=== PATIENT | female | born 1940 | race Caucasian/White ===

== ENCOUNTER 2018-06-14 13:25 | Inpatient (IN) ==
--- NOTE | 2018-06-14 13:36 | Emergency Department Note ---
Disposition Clinical Impression: Displaced fracture of right femoral neck Pelvic fracture Qualifiers: Encounter type: initial encounter Pelvic bone location: pubis Sublocation of pubis: unspecified portion of pubis Fracture type: closed Laterality: right Qualified Code(s): S32.501A - Unspecified fracture of right pubis, initial encounter for closed fracture Disposition: Admitted As Inpatient Condition: Good Time of Disposition: 16:07 General Adult HPI - General Stated complaint: fall Time Seen by Provider: 06/14/18 13:32 Source: patient, EMS Mode of arrival: EMS Limitations: no limitations - History of Present Illness HPI Narrative: This is a 77-year-old female who had a fall from standing, one of numerous falls recently, with persistent right hip pain. She was unable to get up afterwards because of the fall. - Related Data Home Medications Medication Instructions Recorded Confirmed Aspirin [Lo-Dose Aspirin EC] 07/31/16 Calcium + Vitamin D3 Gummies 07/31/16 Elavil 07/31/16 Fish Oil 07/31/16 Ibuprofen 07/31/16 Multivitamins 07/31/16 Neurontin 07/31/16 Propanolol 07/31/16 Synthroid 07/31/16 Tylenol 07/31/16 Previous Rx's Medication Instructions Recorded Azithromycin [Zithromax] 250 mg PO DAILY #6 tablet 07/31/16 Lidocaine Viscous Oral Soln 15 ml MM TID PRN #180 solution 07/31/16 Loratadine [Claritin] 10 mg PO DAILY #30 tablet 07/31/16 Cephalexin [Keflex] 500 mg PO QID 7 Days capsule 06/21/17 Mupirocin [Bactroban Oint] 1 appl TP BID 7 Days tube 01/14/18 cephALEXin [Keflex] 500 mg PO QID #40 capsule 01/14/18 Allergies Allergy/AdvReac Type Severity Reaction Status Date / Time Amoxicillin [From Amoxil] Allergy Rash Verified 01/14/18 17:01 clindamycin Allergy Rash Verified 01/14/18 17:01 sulfamethoxazole Allergy Rash Verified 01/14/18 17:01 [From Septra] trimethoprim [From Septra] Allergy Rash Verified 01/14/18 17:01 All systems ED: reviewed and negative except as stated. Musculoskeletal: Reports: arthralgia Past Medical History - Past Medical History Medical history: Reports: non-contributory Psychiatric history: Reports: depression TIME RECORDER history: Reports: no TIME RECORDER history - Social History Smoking Status: Never smoker Smokeless Tobacco Status: No Alcohol use: Reports: none Drug use: Reports: none Physical Exam - General Limitations: no limitations General appearance: alert, in no apparent distress - Head Head exam: atraumatic, normocephalic, normal inspection - Eye Eye exam: Present: normal appearance, PERRL, EOMI - Chest Chest inspection: Present: normal inspection, symmetric chest wall rise - Respiratory Respiratory exam: Present: normal lung sounds bilaterally - Cardiovascular Cardiovascular exam: Present: regular rate, normal rhythm, normal heart sounds - Abdominal Exam Abdominal exam: Present: soft, Non-Tender. Absent: tenderness, distention, guarding, rebound, rigidity - Extremities Exam Extremities exam: Present: normal inspection, tenderness (There is tenderness at the right side of the pelvis just medial to the right greater trochanter; she appears to be able to flex and extend the right, but it causes pain.) - Neurological Exam Neurological exam: Present: alert, oriented X3, CN II-XII intact - Psychiatric Psychiatric exam: Present: normal affect, normal mood - Skin Skin exam: Present: warm, dry, intact, normal color Course Course Narrative: This is a 77-year-old female with right-sided pelvic pain after a fall. Vital Signs Temperature 98.9 F 06/14/18 13:42 Pulse Rate 81 06/14/18 13:42 Respiratory Rate 14 06/14/18 13:42 Blood Pressure 141/88 06/14/18 13:42 O2 Sat by Pulse Oximetry 98 06/14/18 13:42 Temperature 98.9 F 06/14/18 13:42 Pulse Rate 81 06/14/18 13:42 Respiratory Rate 14 06/14/18 13:42 Blood Pressure 141/88 06/14/18 13:42 O2 Sat by Pulse Oximetry 98 06/14/18 13:42 Oxygen Delivery Oxygen Delivery Room Air Medical Decision Making - MDM Narrative Medical decision making narrative: This is a 77-year-old female who sustained a comminuted right femoral neck fracture and they right-sided symphyseal fracture from a fall from standing. I discussed her case with the on-call orthopedist, who asked that she be admitted to the hospitalist service. I discussed her case with the on-call hospitalist, who accepted her for admission - Lab Data Lab results reviewed: Yes I reviewed the patient's lab results. Lab results narrative: CBC shows slight leukocytosis at 12.1 with hemoconcentration at 15.5 and 45.1 EMP was unremarkable Troponin was low Result diagrams: 06/14/18 14:47 06/14/18 14:47 Lab Results 06/14/18 06/14/18 Range/Units 14:47 14:47 WBC 12.1 H (4.3-11.1) K/mcL RBC 5.04 H (3.82-4.97) M/mcL Hgb 15.5 H (11.5-15.4) g/dL Hct 45.1 H (35.3-44.9) % MCV 89.5 (83.0-100.0) fL MCH 30.8 (28.0-33.3) pg MCHC 34.4 (31.6-35.5) g/dL RDW 12.9 (11.5-14.5) % Plt Count 218 (140-400) K/mcL MPV 9.6 (9.4-12.4) fL Immature Gran % 1.0 (0-4) % Seg Neutrophils % 86.5 % Lymphocytes % 7.6 % Monocytes % 4.0 % Eosinophils % 0.4 % Basophils % 0.5 % Neutrophils # 10.5 H (1.6-8.9) K/mcL Lymphocytes # 0.9 (0.6-4.6) K/mcL Monocytes # 0.5 (0.0-1.3) K/mcL Eosinophils # 0.1 (0.0-0.6) K/mcL Basophils # 0.1 (0.0-0.2) K/mcL Sodium 132 L (136-145) mEq/L Potassium 3.9 (3.5-5.1) mEq/L Chloride 98 (98-107) mEq/L Carbon Dioxide 25 (23-29) mEq/L BUN 18 (8-23) mg/dL Creatinine 0.74 (0.60-1.20) mg/dL Est GFR ( Amer) > 60 (> 60) Est GFR (Non-Af Amer) > 60 (> 60) BUN/Creatinine Ratio 24 (6-26) Glucose 108 H (70-105) mg/dL Calculated Osmolality 276 L (280-300) Calcium 9.9 (8.6-10.3) mg/dL Troponin I < 0.03 (< 0.04) ng/mL - Radiology Data Radiology results reviewed: Yes I reviewed the patient's radiology results. CT pelvis showed a comminuted right femoral neck fracture as well as a pelvic fracture. - EKG Data EKG #1 EKG attestation: Yes I reviewed and interpreted this EKG. EKG results narrative: ECG shows a sinus arrhythmia with numerous ST abnormalities but almost identical to prior seen 09/28/2015. This includes ST depressions in leads 2, 3 , and aVF as well as V4 through V6. Normal intervals, normal axis Critical Care Time Critical Care Time: No
[2018-06-14 15:37] LABS: Basophils # 0.1 K/mcL (0.0-0.2); Basophils % 0.5 %; Eosinophils # 0.1 K/mcL (0.0-0.6); Eosinophils % 0.4 %; Hematocrit 45.1 % (35.3-44.9); Hemoglobin 15.5 g/dL (11.5-15.4); Lymphocytes # 0.9 K/mcL (0.6-4.6); Lymphocytes % 7.6 %; Mean Corpuscular HGB Conc 34.4 g/dL (31.6-35.5); Mean Corpuscular Hemoglobin 30.8 pg (28.0-33.3); Mean Corpuscular Volume 89.5 fL (83.0-100.0); Mean Platelet Volume 9.6 fL (9.4-12.4); Monocytes # 0.5 K/mcL (0.0-1.3); Neutrophils # 10.5 K/mcL (1.6-8.9); Platelet Count 218 K/mcL (140-400); Red Blood Count 5.04 M/mcL (3.82-4.97); Red Cell Distribution Width 12.9 % (11.5-14.5); Segmented Neutrophils % 86.5 %
[2018-06-14 15:55] LABS: BUN/Creatinine Ratio 24 (6-26); Blood Urea Nitrogen 18 mg/dL (8-23); Calcium 9.9 mg/dL (8.6-10.3); Carbon Dioxide 25 mEq/L (23-29); Chloride 98 mEq/L (98-107); Glucose 108 mg/dL (70-105); Osmolality,Calculated 276 (280-300); Potassium 3.9 mEq/L (3.5-5.1); Sodium 132 mEq/L (136-145); eGFR For Non-African Americans > 60 (> 60)
[2018-06-14 15:56] LABS: Troponin I < 0.03 ng/mL (< 0.04)
[2018-06-14] MEDS ORDERED: *HR* HYDROcodone/Acet 5/325 mg TABLET PO PRN (18:06)
[2018-06-14] MEDS: OXYCODONE Oral CONC 10 MG/0.5 ML ORAL.SYG SL PRN (18:38)
--- NOTE | 2018-06-14 20:52 | Internal Med History&Physical ---
Date of Encounter: 06/14/18 Time of Encounter: 19:00 Internal Medicine - H&P: HPI Chief complaint: Right femoral neck fracture Admitted From: Home Plans for Post Hospital Care: Transfer Longterm Facility History of present illness: This is a 77-year-old woman tripped and fell on a street today early afternoon. Subsequently she fell on her right hip and right shoulder. X-ray of her pelvis done in the emergency department showed the right femoral neck fracture with angulation. X-rays of her right shoulder are pending. She did have any particular symptoms before the fall. She has not experienced any chest pain, dyspnea, dizziness or lightheadedness recently. Her last fall happened a year ago (she tripped). She reported to me feeling somewhat weak recently. It started after her surgery on sinuses in May of this year. She has been treated for hypertension, hypothyroidism, macular degeneration, glaucoma and osteoporosis. REVIEW OF SYSTEMS: All 14 organ systems were reviewed by me with the patient. Positive and pertinent negative findings are listed above. The rest of organ systems is negative. PHYSICAL EXAM: Skin: Free of rash and discoloration. Musculoskeletal: Her right leg is shorter than the left one. It is in outward rotation. Right hip area is very tender to palpation. I could not check any active or passive movements in that the joint. There is also some tenderness at the apex of right shoulder. She seems to have normal range of motion in that joint. Eyes: Sclera is white. There is no discharge from eyes. ENMT: Oral/pharyngeal mucosa is normal in appearance. There is no discharge from nose or ears. Respiratory: Normal breath sounds with no crackles and wheezes bilaterally. CV: Heart is regular with no gallop or murmur. GI: Abdomen is flat and soft with no palpable mass or visceromegaly. : There is no tenderness in patient's flanks bilaterally. Neuro exam: He has good strength in upper and lower extremities. He has normal eye movements. Psychiatric: He has normal affect. His thought process is appropriate to the situation. A/P: Right femoral neck fracture with angulation. Nondisplaced pelvic fracture close to the symphysis pubis (on the right side). Orthopedic surgery has been consulted. The patient will undergo surgery after tomorrow morning. We will keep her pain under control using when necessary [place] and her when necessary oxycodone. The patient will have complete bedrest. We will keep her on low- dose subcutaneous heparin to prevent DVT. Hypertension. Under control. We will continue propranolol. Hypothyroidism. Clinically under control. We will continue Synthroid. The patient seems to have relatively low risk for the surgery mentioned above. It was 2 years ago when she had a stress test and echocardiogram, as she experienced recurrent chest pain after losing her . Those are tests were apparently normal; they did not prompted further heart testing. Past Med Surg Social Fam HX - Past Medical History Medical history: non-contributory, hypertension, osteoporosis, thyroid disease Additional medical history: brain tumor Psychiatric history: depression - Past Surgical History Additional surgical history: sinus surgery. - Social History Smoking Status: Never smoker Smokeless Tobacco Status: No Alcohol use: none Drug use: none - Family History Mother Hx Family Cardiac Disorders: Yes (CHF) Internal Medicine - H&P: Meds Calcium + Vitamin D3 Gummies 07/31/16 [History] Elavil 07/31/16 [History] Fish Oil 07/31/16 [History] Ibuprofen 07/31/16 [History] Lidocaine Viscous Oral Soln 15 ml MM TID PRN #180 solution 07/31/16 [Rx] Loratadine [Claritin] 10 mg PO DAILY #30 tablet 07/31/16 [Rx] Multivitamins 07/31/16 [History] Neurontin 07/31/16 [History] Propanolol 07/31/16 [History] Synthroid 07/31/16 [History] Tylenol 07/31/16 [History] 3 Allergy/AdvReac Type Severity Reaction Status Date / Time Amoxicillin [From Amoxil] Allergy Rash Verified 01/14/18 17:01 clindamycin Allergy Rash Verified 01/14/18 17:01 sulfamethoxazole Allergy Rash Verified 01/14/18 17:01 [From Septra] trimethoprim [From Septra] Allergy Rash Verified 01/14/18 17:01 - Constitutional Vitals: Temp Pulse Resp BP Pulse Ox 99.0 F 74 16 183/94 95 06/14/18 18:23 06/14/18 18:23 06/14/18 18:23 06/14/18 20:37 06/14/18 17:12 General appearance: Present: A&O X 3, no acute distress, answers questions appropriately Exam: xxx Internal Med - H&P Results - Labs CBC & Chem 7: 06/14/18 14:47 06/14/18 14:47 - Assessment and plan (1) Displaced fracture of right femoral neck Current Visit: Yes Status: Acute (2) Pelvic fracture Current Visit: Yes Status: Acute Qualifiers: Encounter type: initial encounter Pelvic bone location: pubis Sublocation of pubis: unspecified portion of pubis Fracture type: closed Laterality: right Qualified Code(s): S32.501A - Unspecified fracture of right pubis, initial encounter for closed fracture (3) HTN (hypertension) Current Visit: Yes Status: Chronic Qualifiers: Hypertension type: essential hypertension Qualified Code(s): I10 - Essential (primary) hypertension (4) Hypothyroid Current Visit: Yes Status: Chronic Qualifiers: Hypothyroidism type: acquired Qualified Code(s): E03.9 - Hypothyroidism, unspecified - Time Spent With Patient Total time spent is greater than 50% in coordination of care (as documented) at patient's floor/unit and/or counseling patient: Greater than 35 minutes - VTE Contraindication No Overlap Therapy: Admin of oral Factor Xa Inhibitor Deep Vein Thrombosis/Pulmonary Embolism Present on Admission: No
[2018-06-14] MEDS ORDERED: Ondansetron ODT 4 MG TAB.RAPDIS PO PRN (22:09)
[2018-06-14] MEDS: Melatonin 3 MG TABLET PO SCH (23:07)
[2018-06-15] MEDS: OXYCODONE Oral CONC 10 MG/0.5 ML ORAL.SYG SL PRN ×2 (01:52→09:45)
[2018-06-15] MEDS: *HR* Heparin 5,000 UNIT/ML VIAL SQ SCH ×3 (05:40→20:21)
[2018-06-15] MEDS ORDERED: Fluticasone Propionate Nasal 50 MCG/SPRAY BOTTLE NS SCH (09:00)
[2018-06-15] MEDS: Gabapentin 300 MG CAPSULE PO SCH ×3 (09:42→20:20)
[2018-06-15] MEDS: Propranolol LA (24 HR) 80 MG CAP.SA.24H PO SCH ×2 (09:43→20:21)
[2018-06-15] MEDS: LUTEIN 6 MG PO SCH (09:43)
[2018-06-15] MEDS ORDERED: traMADol 50 MG TABLET PO PRN (13:51)
[2018-06-15 15:11] LABS: Hematocrit 44.8 % (35.3-44.9); Hemoglobin 15.6 g/dL (11.5-15.4); Mean Corpuscular HGB Conc 34.8 g/dL (31.6-35.5); Mean Corpuscular Hemoglobin 31.1 pg (28.0-33.3); Mean Corpuscular Volume 89.2 fL (83.0-100.0); Mean Platelet Volume 9.8 fL (9.4-12.4); Platelet Count 181 K/mcL (140-400); Red Blood Count 5.02 M/mcL (3.82-4.97)
[2018-06-15 15:16] LABS: Prothrombin Time 11.4 Seconds (9.4-12.1)
[2018-06-15] MEDS: Ketorolac 15 MG/ML VIAL IVP PRN ×2 (15:53→22:21)
--- NOTE | 2018-06-15 17:31 | Orthopedic Consult Note ---
Date of Encounter: 06/15/18 Time of Encounter: 14:00 Assessment and Plan (1) Displaced fracture of right femoral neck Current Visit: Yes Status: Acute Hip fracture will require surgical intervention. Discussed case with Dr. Wiseman who recommends right hip hemiarthroplasty plan for 06/16/18. I reviewed the procedure as well as r/b/a with the patient and she expressed understanding along with family. All questions were answered and consent was obtained and placed in chart. Continue bedrest until surgery. NPO after midnight tonight. Pain control per hospitalist. (2) Acute pain of left foot Current Visit: Yes Status: Acute Patient had acute left foot pain since the fall with moderate ecchymosis to dorsal foot and point tenderness over 3rd and 4th metatarsals with swelling. Xrays revealed no acute bony abnormalities. Continue to ice and elevate. ROM as tolerated. (3) Right shoulder pain Current Visit: Yes Status: Acute Patient also having right shoulder pain with h/o chronic shoulder issues that had improved but then worsened with the fall. She has good motion above shoulder level with little pain. Fracture is less likely at this time. Will do conservative treatment for now, ice as needed. Consider further imaging if no improvement. There is a very superficial abrasion noted to lateral shoulder that will not require any dressings Qualifiers: Qualified Code(s): M25.511 - Pain in right shoulder; G89.29 - Other chronic pain History of Present Illness Chief complaint: right hip pain HPI: Ms. Boyce is a 77 year old female who presented to the ER yesterday with right hip pain after tripping on the sidewalk. She had immediate pain to right hip and shoulder and has been unable to bear weight to RLE. Pain localized to right hip but does go some to knee, it is constant but well controlled at this time with medication, worse with motion. She denies any numbness or tingling to extremities. She denied any further pains anywhere else but after further questioning family did state she was complaining of left foot pain and right shoulder pain since the fall as well. She denies hitting her head or LOC. Denies any chest pain, SOb, fevers at this time. She typically walks well with no assistance. Of note, family admits that she has had recent sinus surgery roughly 2 weeks ago for a bone that is apparently close to brain and is at high risk for meningitis. She has been on steroids since that time. Past Med Surg Social Fam HX - Past Medical History Medical history: non-contributory, hypertension, osteoporosis, thyroid disease Additional medical history: brain tumor Psychiatric history: depression - Past Surgical History Additional surgical history: sinus surgery. - Social History Smoking Status: Never smoker Smokeless Tobacco Status: No Alcohol use: none Drug use: none - Family History Mother Hx Family Cardiac Disorders: Yes (CHF) Medications and Allergies Alendronate Sodium [Fosamax] 70 mg PO MO 06/14/18 [History] Amitriptyline HCl 75 mg PO HS 06/14/18 [History] Aspirin [Lo-Dose Aspirin EC] 81 mg PO HS 06/14/18 [History] Calcium Carbonate [Calcium] 600 mg PO DAILY 06/14/18 [History] Doxycycline Hyclate [Vibramycin] 100 mg PO BID 06/14/18 [History] Ergocalciferol (VITAMIN D2) [Vitamin D] 800 unit PO QPM 06/14/18 [History] Fluticasone Propionate Nasal [Flonase] 2 spr NS DAILY 06/14/18 [History] Gabapentin [Neurontin] 300 mg PO TID 06/14/18 [History] Levothyroxine [Synthroid] 100 mcg PO 0630 06/14/18 [History] Loratadine [Allergy Relief] 10 mg PO HS 06/14/18 [History] Lutein 6 mg PO DAILY 06/14/18 [History] Melatonin [Melatin] 3 mg PO HS 06/14/18 [History] Multivitamin [One Daily Multivitamin] 1 tab PO DAILY 06/14/18 [History] [place]-3/Dha/Epa/Fish Oil [Fish Oil 1,000 mg Softgel] 1 cap PO DAILY 06/14/18 [ History] Ondansetron HCl [Zofran] 4 mg PO Q8HR PRN 06/14/18 [History] Propranolol HCl [Inderal LA] 160 mg PO BID 06/14/18 [History] predniSONE [PredniSONE] 10 mg PO AD 06/14/18 [History] 3 Allergy/AdvReac Type Severity Reaction Status Date / Time Amoxicillin [From Amoxil] Allergy Rash Verified 01/14/18 17:01 clindamycin Allergy Rash Verified 01/14/18 17:01 sulfamethoxazole Allergy Rash Verified 01/14/18 17:01 [From Septra] trimethoprim [From ] Allergy Rash Verified 01/14/18 17:01 All Systems Reviewed: The remainder of the systems were reviewed and are negative - Constitutional Constitutional: as per HPI - Cardiovascular Cardiovascular: as per HPI - Respiratory Respiratory: as per HPI - Musculoskeletal Musculoskeletal: as per HPI Physical Exam - Constitutional Vitals: Temp Pulse Resp BP Pulse Ox 98.6 F 80 14 152/77 94 06/15/18 15:14 06/15/18 15:14 06/15/18 15:14 06/15/18 15:14 06/15/18 15:14 - Shoulder right Appearance shoulder: normal (with very superficial abrasion noted to lateral shoulder) Tenderness w/ palpation shoulder: none Pain with motion: No ROM: forward flexion: normal (to shoulder level) - Hip right Tenderness with palpation: anterior (no erythema, ecchymosis or open wounds noted to right hip. mild tenderness to palpation of the anterior hip. no calf tenderness. ROM restricted secondary to known fracture and pain. good dorsiflexion of foot. grossly NV intact.) - Ankle & Foot left Ankle appearance: swelling Foot appearance: swelling, contusion Foot swelling: dorsal Tenderness with palpation: dorsal foot Full ROM: yes ROM: dorsiflexion: normal ROM: plantarflexion: normal - Fracture left hip Appearance: normal Results - Labs Result Diagrams: 06/15/18 14:46 06/14/18 14:47 Labs: Abnormal lab results RBC 5.02 M/mcL (3.82-4.97) H 06/15/18 14:46 Hgb 15.6 g/dL (11.5-15.4) H 06/15/18 14:46 Neutrophils # 10.5 K/mcL (1.6-8.9) H 06/14/18 14:47 Sodium 132 mEq/L (136-145) L 06/14/18 14:47 Glucose 108 mg/dL (70-105) H 06/14/18 14:47 Calculated Osmolality 276 (280-300) L 06/14/18 14:47 H & H 06/15/18 Range/Units 14:46 Hgb 15.6 H (11.5-15.4) g/dL Hct 44.8 (35.3-44.9) % All other labs normal. - Diagnostic results Hip x-ray: report reviewed, image reviewed Ankle/Foot x-ray: report reviewed, image reviewed Consult Discharge Plan - Plan - Attending Attestation Case and plan of care discussed with supervising physician who was available for all aspects of care.
[2018-06-15] MEDS ORDERED: Cholecalciferol (D-3) 1,000 UNIT TABLET PO SCH (18:00)
--- NOTE | 2018-06-15 18:02 | Electrocardiograph Report ---
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
[2018-06-15] MEDS ORDERED: Milk and Molasses Enema 200 ML RC ONE (20:14)
[2018-06-15] MEDS: Melatonin 3 MG TABLET PO SCH (20:20)
[2018-06-15] MEDS ORDERED: Aspirin Enteric Coated 81 MG Tablet PO SCH (21:00)
[2018-06-15] MEDS ORDERED: Loratadine 10 MG TABLET PO SCH (21:00)
--- NOTE | 2018-06-15 22:39 | Internal Med Progress Note ---
Hospitalist Progress Note - Encounter Date of Encounter: 06/15/18 Time of Encounter: 19:00 - Subjective Interval History: SUBJECTIVE: In the last few hours the patient has developed progressing redness and itching of her body, mostly upper and lower extremities. Her right hip pain, as well as pain in the right shoulder and in the anterior pelvis are under control. Denies chest pain. Denies difficulty breathing, coughing and wheezing. Denies abdominal pain, nausea and vomiting. Whyte catheter is in. It is draining good amounts of normal color urine. OBJECTIVE: Skin: Free of rash and discoloration. Musculoskeletal: See orthopedic surgery evaluation. ENMT: Oral/pharyngeal mucosa is normal in appearance. Eyes: Sclera is white. There is no discharge from eyes. Respiratory: Normal breath sounds; no crackles or wheezes. CV: Heart is regular; no gallop or murmur. GI: Abdomen is soft and not tender. There is no palpable mass or visceromegaly. Neuro: There is no focal deficits. ASSESSMENT AND PLAN: Displaced fracture of right femoral neck with nondisplaced fracture of right pelvis (mild). See orthopedic surgery evaluation. They want to proceed with the surgery tomorrow morning. She has developed likely side effects from [place] and/or oxycodone. We will substituted them with tramadol/Toradol. I will give her 1 dose of IV Benadryl. Then she will be taking by mouth Benadryl for 12 days. Hypertension. Under control. Will continue propranolol. Hypothyroidism. Under control. We will continue Synthroid. - Exam Vitals: Temp Pulse Resp BP Pulse Ox 98.2 F 84 16 147/79 93 06/15/18 19:53 06/15/18 19:53 06/15/18 19:53 06/15/18 19:53 06/15/18 19:53 Exam: xxx - Assessment and Plan (1) Displaced fracture of right femoral neck Current Visit: Yes Status: Acute (2) Pelvic fracture Current Visit: Yes Status: Acute (3) HTN (hypertension) Current Visit: Yes Status: Chronic (4) Hypothyroid Current Visit: Yes Status: Chronic - Time Spent with Patient Total time spent is greater than 50% in coordination of care (as documented) at patient's floor/unit and/or counseling patient: 25 - 35 minutes Plan of Care Discussed with: patient Internal Medicine: Result - Labs CBC & Chem 7: 06/15/18 14:46 06/14/18 14:47 Labs: Short CBC 06/15/18 Range/Units 14:46 WBC 9.9 (4.3-11.1) K/mcL Hgb 15.6 H (11.5-15.4) g/dL Hct 44.8 (35.3-44.9) % Plt Count 181 (140-400) K/mcL - ABG Interpretation ABG results: PT/INR, D-dimer PT 11.4 Seconds (9.4-12.1) 06/15/18 14:46 - Impressions Impressions Foot X-Ray 06/15/18 14:15 IMPRESSION: 1. Age indeterminate although likely chronic deformity of the distal lateral cuboid bone. Please correlate for point tenderness. If there is clinical concern for an acute fracture, noncontrast CT exam could be performed. Alternatively, prior studies if available for comparison would be helpful. 2. No acute dislocation. 3. Mild degenerative changes, as detailed in body of report. D/ / Nghia Ceja / Nghia Ceja Interpreting Provider: Nghia Ceja - VTE Contraindication No Overlap Therapy: Admin of oral Factor Xa Inhibitor Deep Vein Thrombosis/Pulmonary Embolism Present on Admission: No Consult Discharge Plan - Plan Referrals: Shima Cordero CNP [Primary Care Provider] - (2) Pelvic fracture Qualifiers: Encounter type: initial encounter Pelvic bone location: pubis Sublocation of pubis: unspecified portion of pubis Fracture type: closed Laterality: right Qualified Code(s): S32.501A - Unspecified fracture of right pubis, initial encounter for closed fracture (3) HTN (hypertension) Qualifiers: Hypertension type: essential hypertension Qualified Code(s): I10 - Essential (primary) hypertension (4) Hypothyroid Qualifiers: Hypothyroidism type: acquired Qualified Code(s): E03.9 - Hypothyroidism, unspecified
--- NOTE | 2018-06-16 00:03 | Anesthesia Evaluation PreOp ---
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: Other (brain tumor, depression) Other Medical History: Thyroid (hypo), Other (osteoporosis) Anesthesia History: No Prior Anesthetic Complications, Past Anesthesia (sinus sx ) Alcohol Use: none Drug use: none Medications and Allergies Alendronate Sodium [Fosamax] 70 mg PO MO 06/14/18 [History] Amitriptyline HCl 75 mg PO HS 06/14/18 [History] Aspirin [Lo-Dose Aspirin EC] 81 mg PO HS 06/14/18 [History] Calcium Carbonate [Calcium] 600 mg PO DAILY 06/14/18 [History] Doxycycline Hyclate [Vibramycin] 100 mg PO BID 06/14/18 [History] Ergocalciferol (VITAMIN D2) [Vitamin D] 800 unit PO QPM 06/14/18 [History] Fluticasone Propionate Nasal [Flonase] 2 spr NS DAILY 06/14/18 [History] Gabapentin [Neurontin] 300 mg PO TID 06/14/18 [History] Levothyroxine [Synthroid] 100 mcg PO 0630 06/14/18 [History] Loratadine [Allergy Relief] 10 mg PO HS 06/14/18 [History] Lutein 6 mg PO DAILY 06/14/18 [History] Melatonin [Melatin] 3 mg PO HS 06/14/18 [History] Multivitamin [One Daily Multivitamin] 1 tab PO DAILY 06/14/18 [History] [place]-3/Dha/Epa/Fish Oil [Fish Oil 1,000 mg Softgel] 1 cap PO DAILY 06/14/18 [ History] Ondansetron HCl [Zofran] 4 mg PO Q8HR PRN 06/14/18 [History] Propranolol HCl [Inderal LA] 160 mg PO BID 06/14/18 [History] predniSONE [PredniSONE] 10 mg PO AD 06/14/18 [History] 3 Allergy/AdvReac Type Severity Reaction Status Date / Time Amoxicillin [From Amoxil] Allergy Rash Verified 01/14/18 17:01 clindamycin Allergy Rash Verified 01/14/18 17:01 sulfamethoxazole Allergy Rash Verified 01/14/18 17:01 [From Septra] trimethoprim [From Septra] Allergy Rash Verified 01/14/18 17:01 - Meds/Allergy Pre-op Review Medications Reviewed: Yes Allergies Reviewed: Yes Beta Blockers on Current Med List: No Anesthesia Results - Labs 06/15/18 14:46 06/14/18 14:47 Laboratory Tests 06/15/18 14:46 PT 11.4 INR 1.0 - Imaging EKG: report reviewed (Sinus arrhythmia Biatrial enlargement Possible left ventricular hypertrophy Nonspecific T abnrm, anterolateral leads Electronically Signed On 06-15-2018 18:00:46 EDT by Price Kulkarni) Anesthesia Exam Vital Signs/O2 Sat, Most Current Temp Pulse Resp BP Pulse Ox 97.9 F 83 16 163/81 95 06/15/18 23:39 06/15/18 23:39 06/15/18 23:39 06/15/18 23:39 06/15/18 23:39 Anesthesia Assess/Plan ASA Score: 3 Anesthetic Plan: General Monitoring Plan: Standard Monitors Recovery Plan: PACU
[2018-06-16] MEDS: *HR* Heparin 5,000 UNIT/ML VIAL SQ SCH (05:50)
[2018-06-16] MEDS: Propranolol LA (24 HR) 80 MG CAP.SA.24H PO SCH ×2 (08:50→21:55)
[2018-06-16] MEDS: Ketorolac 15 MG/ML VIAL IVP PRN (08:50)
[2018-06-16] MEDS: LUTEIN 6 MG PO SCH (08:56)
[2018-06-16] MEDS: Gabapentin 300 MG CAPSULE PO SCH ×3 (08:56→21:55)
[2018-06-16] MEDS ORDERED: Lidocaine -MPF 2% 2 ML VIAL ONE (09:12)
[2018-06-16] MEDS ORDERED: Dexamethasone 4 MG/ML VIAL ONE (09:12)
[2018-06-16] MEDS ORDERED: Ondansetron 4 MG/2 ML VIAL ONE (09:12)
[2018-06-16] MEDS ORDERED: *HR* FentaNYL (PF) 100 MCG/2 ML VIAL ONE (09:12)
[2018-06-16] MEDS ORDERED: *HR* Propofol 200 MG/20 ML VIAL IVP ONE (09:13)
[2018-06-16] MEDS ORDERED: Vancomycin 1,000 MG in Sodium Chloride IRRigation 250 ML IR ONE (09:25)
[2018-06-16] MEDS ORDERED: Vancomycin 1,000 MG VIAL ONE (09:37)
[2018-06-16] MEDS ORDERED: Ethanol\\Acetic Acid\\Na Ace\\Ben 1,000 ML IRRIG.SOLN IR ONE (09:38)
[2018-06-16] MEDS ORDERED: *HR* Succinylcholine 200 MG/10 ML VIAL IVP ONE (09:44)
[2018-06-16] MEDS ORDERED: *HR* PHENYLEPHRINE 1,000 MCG/10 ML SYRINGE IVP ONE (10:21)
[2018-06-16] MEDS ORDERED: EPHEDrine 50 MG/ML VIAL ONE (10:30)
[2018-06-16] MEDS ORDERED: Ondansetron 4 MG/2 ML VIAL IVP ONE ×2 (11:10→13:28)
[2018-06-16] MEDS ORDERED: *HR* OxyCODONE Immed Rel 5 MG TABLET PO PRN ×2 (11:10→13:28)
[2018-06-16] MEDS ORDERED: *HR* Morphine 2 MG/ML SYRINGE IVP PRN ×2 (11:10→13:28)
[2018-06-16] MEDS ORDERED: Ringers Solution, Lactated 1,000 ML IVC SCH ×3 (11:15→13:28)
--- NOTE | 2018-06-16 12:10 | Operative Note ---
Date of procedure: 06/16/18 Pre-op diagnosis: Right hip femoral neck fracture, displaced. Pelvic ring rami fractures Post-op diagnosis: same Procedure: Right hip french-arthroplasty. Closed treatment of pelvic ring rami fractures Implants: Biomet Anesthesia: GETA Surgeon: Ritchie Wiseman Was there an traffic assistant present: Yes Twine Reeling Machine Operator: Rafia Rust Estimated blood loss (cc): 150 Specimen: Sent to pathology Condition: stable Disposition: PACU Procedure in Detail: The patient received IV antibiotics in the holding area. She was brought to the operating room, sign in was performed. The patient underwent general anesthesia on the hospital bed. She was then transferred to the OR table in supine position. The patient was positioned in the left lateral decubitus position, supported by pelvic supports. Bony prominences of the left lower extremity were well padded. The right lower extremity was then prepped and draped in usual sterile fashion. A timeout was performed. The level of the greater trochanter was palpated, a 10-12 cm curvilinear posterior incision was made, followed by Bovie dissection. The hip abductor was sharply split in line with its fibers with a curved Watson scissors, incising the fascia over the gluteus frank also. The Charnley retractors were then positioned, making sure all not to go too deeply, to protect the sciatic nerve. The bursa over the greater trochanter was excised with Bovie electrocautery. The left hip was then internally rotated, putting the short external rotators on stretch. These were taken down from the insertion point with the Bovie cautery, starting from less of a trochanter and going approximately to the femoral neck. The capsule along the posterior femoral neck and head was then T' ed, giving exposure to the fractured femoral head/neck. The head was then removed with a power corkscrew, and cutting the ligamentum teres. The head was measured and a size 45 mm diameter was chosen. The acetabulum was washed out of any bone fragments, and a trial head was placed giving a good fit. Next, the exposed fractured femoral neck was cleaned up with a rongeur, a jukebox routeman was then used to remove the lateral bone. The canal finder was then inserted. We then started broaching with a press-fit broaches from the Roxanna [employer]omet echo tray. Starting with a press-fit 7, and moving up to a press-fit 8, keeping the appropriate anteversion. The trial stem was well fixed with no toggling. The broach was then removed. The canal was irrigated out and suctioned. The Roxanna [employer]omet Echo press-fit stem was then opened, using a lateralized 130 degree neck angle and a size 12 pressfit stem, the implant was tapped in place, making sure to keep the correct anteversion. Once well positioned, we trialed with a 45 mm diameter trial head, and a -3 mm neck length. Stability was checked along with leg length, it was felt that the leg length was slightly short. I then trialed with a 0 mm neck length. The leg lengths felt equal, the patient had good extension of the left lower extremity, is able to flex the hip, adduct, and internally rotated up to 60 degrees before the hip started subluxing out. The trial components removed. The acetabulum was copiously irrigated with normal saline once again making sure it was well cleaned out. Next the 45 mm bipolar head was opened with a neutral neck length. This was assembled and tapped in place. The hip was reduced, and stability was checked once again. We had good stability, and equal leg lengths. The joint was soaked with Irrisept for 1 minute. Next we pulse lavaged the joint implants with Bactisure. This was followed by normal saline. The capsule was then closed with 2-0 FiberWire figure of 8 sutures. The leg was placed on Watson stand, and the short external rotators were reattached to the bone using the FiberWire. The tensor fascia along with the gluteus fascia was closed with FiberWire [id number] sutures and a #1 Vicryl running suture proximally. Once again irrigating the wound with pulse lavage. The deep fat layer was closed with 0 Vicryl, subcutaneous tissues with 2-0 Vicryl simple sutures, and finally the skin was closed with renate and Zipline system. Sterile dressings were applied. A hip abduction wedge was in place between the patient's legs. She was then rolled over into supine position and transferred back onto the hospital bed where she was extubated and taken to the recovery room in stable condition. Postoperative x-rays will be taken in the recovery room of the right hip and also pelvis since the patient has superior rami fractures.
[2018-06-16] MEDS ORDERED: *HR* Morphine 10 MG/ML VIAL ONE (12:12)
--- NOTE | 2018-06-16 13:01 | Anesthesia Evaluation Post Op ---
Date of Encounter: 06/16/18 Time of Encounter: 13:01 - Vital Signs Vital Signs: Vital Signs Temperature 98.9 F 06/14/18 13:42 Pulse Rate 81 06/14/18 13:42 Respiratory Rate 14 06/14/18 13:42 Blood Pressure 141/88 06/14/18 13:42 O2 Sat by Pulse Oximetry 98 06/14/18 13:42 Temperature 98.0 F 06/16/18 12:50 Pulse Rate 68 06/16/18 12:50 Respiratory Rate 16 06/16/18 12:50 Blood Pressure 155/90 06/16/18 12:50 O2 Sat by Pulse Oximetry 95 06/16/18 12:50 Oxygen Delivery Oxygen Delivery Room Air - Lungs Lungs: Clear Ascult./Percussion - Airway Airway: Non-obstructed - Cardiovascular Regular Rate, Baseline Rhythm - Mental Status Mental Status: Alert & Oriented, Answers Appropriately - Pain Pain Scale: 0 Pain Scale used: Numeric (1 - 10) - Nausea Vomiting Nausea Vomiting: Not Present - Hydration Hydration: Tolerates oral liquids - Discharge PostOp Status: Transfer Patient to floor
[2018-06-16] MEDS ORDERED: Temazepam 15 MG CAPSULE PO PRN (13:28)
[2018-06-16] MEDS ORDERED: Ondansetron ODT 4 MG TAB.RAPDIS PO PRN (13:28)
[2018-06-16] MEDS ORDERED: MOM Conc 10 ML UD.LIQ PO PRN (13:28)
[2018-06-16] MEDS ORDERED: Naloxone 0.4 MG/ML INJ IVP PRN (13:28)
[2018-06-16] MEDS ORDERED: Sennosides 8.6 MG TABLET PO PRN (13:28)
[2018-06-16] MEDS: Ascorbic Acid 500 MG TABLET PO SCH (15:27)
[2018-06-16] MEDS: Cholecalciferol (D-3) 1,000 UNIT TABLET PO SCH (19:17)
[2018-06-16] MEDS: Aspirin Enteric Coated 81 MG Tablet PO SCH (21:54)
[2018-06-16] MEDS: Loratadine 10 MG TABLET PO SCH (21:54)
[2018-06-16] MEDS: traMADol 50 MG TABLET PO PRN (21:55)
[2018-06-16] MEDS: Melatonin 3 MG TABLET PO SCH (21:55)
[2018-06-17 01:08] LABS: Hematocrit 31.5 % (35.3-44.9)
[2018-06-17 01:15] LABS: Hemoglobin 10.7 g/dL (11.5-15.4)
[2018-06-17 01:26] LABS: BUN/Creatinine Ratio 21 (6-26); Blood Urea Nitrogen 12 mg/dL (8-23); Calcium 8.2 mg/dL (8.6-10.3); Carbon Dioxide 23 mEq/L (23-29); Chloride 102 mEq/L (98-107); Glucose 123 mg/dL (70-105); Osmolality,Calculated 271 (280-300); Potassium 4.5 mEq/L (3.5-5.1); Sodium 130 mEq/L (136-145); eGFR For Non-African Americans > 60 (> 60)
[2018-06-17] MEDS: *HR* Enoxaparin 30 MG/0.3 ML SYRINGE SQ SCH ×2 (04:46→16:21)
--- NOTE | 2018-06-17 06:05 | Internal Med Progress Note ---
Hospitalist Progress Note - Encounter Date of Encounter: 06/16/18 Time of Encounter: 19:00 - Subjective Interval History: SUBJECTIVE: The patient had surgery today. She has not developed any chest pain or difficulty breathing. Her right hip pain is under control. Redness and itching of her body (described by me yesterday) subsided. OBJECTIVE: Skin: Free of rash and discoloration. Musculoskeletal: See orthopedic surgery evaluation. ENMT: Oral/pharyngeal mucosa is normal in appearance. Eyes: Sclera is white. There is no discharge from eyes. Respiratory: Normal breath sounds; no crackles or wheezes. CV: Heart is regular; no gallop or murmur. GI: Abdomen is soft and not tender. There is no palpable mass or visceromegaly. Neuro: There is no focal deficits. ASSESSMENT AND PLAN: Displaced fracture of right femoral neck with nondisplaced fracture of right pelvis (mild). She had surgical intervention today. We will start physical therapy. Will control her pain with tramadol and/or Toradol. She cannot take opiate medications. Hypertension. Under control. Will continue propranolol. Hypothyroidism. Under control. We will continue Synthroid. - Exam Vitals: Temp Pulse Resp BP Pulse Ox 98.1 F 78 16 133/62 98 06/17/18 04:11 06/17/18 04:11 06/17/18 04:11 06/17/18 04:11 06/17/18 04:11 Exam: xx - Assessment and Plan (1) Displaced fracture of right femoral neck Current Visit: Yes Status: Acute (2) Pelvic fracture Current Visit: Yes Status: Acute (3) HTN (hypertension) Current Visit: Yes Status: Chronic (4) Hypothyroid Current Visit: Yes Status: Chronic - Time Spent with Patient Total time spent is greater than 50% in coordination of care (as documented) at patient's floor/unit and/or counseling patient: 25 - 35 minutes Plan of Care Discussed with: patient Internal Medicine: Result - Labs CBC & Chem 7: 06/18/18 00:38 06/18/18 00:38 Labs: Short CBC 06/17/18 Range/Units 00:44 Hgb 10.7 L D (11.5-15.4) g/dL Hct 31.5 L (35.3-44.9) % BMP 06/17/18 00:44 Sodium 130 L Potassium 4.5 Chloride 102 Carbon Dioxide 23 BUN 12 Creatinine 0.56 L Glucose 123 H Calcium 8.2 L - ABG Interpretation ABG results: PT/INR, D-dimer PT 11.4 Seconds (9.4-12.1) 06/15/18 14:46 - Impressions Impressions Hip X-Ray 06/16/18 12:24 IMPRESSION: Expected postsurgical changes from right hip hemiarthroplasty. No other acute osseous abnormality. D/ / Madhavi Perez MD / Madhavi Perez MD Interpreting Provider: Madhavi Perez MD - VTE Contraindication No Overlap Therapy: Admin of oral Factor Xa Inhibitor Deep Vein Thrombosis/Pulmonary Embolism Present on Admission: No Consult Discharge Plan - Plan Referrals: Shima Cordero HEDDLER TIER [Primary Care Provider] - (2) Pelvic fracture Qualifiers: Encounter type: initial encounter Pelvic bone location: pubis Sublocation of pubis: unspecified portion of pubis Fracture type: closed Laterality: right Qualified Code(s): S32.501A - Unspecified fracture of right pubis, initial encounter for closed fracture (3) HTN (hypertension) Qualifiers: Hypertension type: essential hypertension Qualified Code(s): I10 - Essential (primary) hypertension (4) Hypothyroid Qualifiers: Hypothyroidism type: acquired Qualified Code(s): E03.9 - Hypothyroidism, unspecified
[2018-06-17] MEDS: Gabapentin 300 MG CAPSULE PO SCH ×3 (10:12→20:40)
[2018-06-17] MEDS: Propranolol LA (24 HR) 80 MG CAP.SA.24H PO SCH ×2 (10:12→20:40)
[2018-06-17] MEDS: Ascorbic Acid 500 MG TABLET PO SCH ×2 (10:13→16:15)
[2018-06-17] MEDS: Multivit/Ca/Min/Fe/FA 1 TAB TABLET PO SCH (10:13)
[2018-06-17] MEDS: Fluticasone Propionate Nasal 50 MCG/SPRAY BOTTLE NS SCH (10:17)
[2018-06-17] MEDS: LUTEIN 6 MG PO SCH (10:17)
[2018-06-17] MEDS: Ketorolac 15 MG/ML VIAL IVP PRN ×2 (11:38→20:45)
--- NOTE | 2018-06-17 14:56 | Orthopedics Progress Note ---
Date of Encounter: 06/17/18 Time of Encounter: 12:45 - Assessment and Plan (1) Displaced fracture of right femoral neck Current Visit: Yes Status: Acute POD#1 s/p right hip hemiarthroplasty 06/16/18 dressings c/d/i. Continue to ice to right hip as needed. Continue with therapy - WBAT with walker DVT prophylaxis - lovenox x 2 weeks then aspirin Plan for DC to ECF once approved. Will follow up with Rafia Rust PA-C in [facility] office on 06/29/18. (2) Acute pain of left foot Current Visit: Yes Status: Acute full ROM ankle and foot. improving pain. WBAT. ROM as tolerated. Conservative treatment - ice and elevate as needed. (3) Right shoulder pain Current Visit: Yes Status: Acute Pain has improved today and she has full ROM now above head with little difficulty. Family is requesting imaging. Hospitalist has put in orders for xrays - pending. Qualifiers: Qualified Code(s): M25.511 - Pain in right shoulder; G89.29 - Other chronic pain Subjective Principal diagnosis: POD#1 s/p Right hip french-arthroplasty 06/16/18 Interval history: Patient doing well today. She states hip pain is tolerable and improving. States therapy went well this morning but she had a little difficulty using the walker due to some shoulder pain since her original injury. She states the shoulder pain is much improved than 2 days ago but still a little sore while using walker. She states her ankle is feeling much better as well. Denies any other concerns at this time. Objective Vital signs: Vital Signs Temp Pulse Resp BP Pulse Ox 06/17/18 09:46 98.1 F 87 16 137/73 95 06/17/18 06:45 98.4 F 78 14 138/67 97 06/17/18 04:11 98.1 F 78 16 133/62 98 06/16/18 23:38 97.6 F 67 17 113/68 97 06/16/18 21:31 97.8 F 77 16 133/75 96 06/16/18 17:25 98.4 F 67 16 128/69 98 06/16/18 15:55 97.7 F 68 18 98 06/16/18 15:20 98.5 F 64 14 131/74 98 Intake and Output 06/16/18 06/17/1818 23:59 07:59 15:59 Intake Total 100 / 100 Output Total 1530 / 1530 500 / 500 250 / 250 Balance -1530 / -1530 -500 / -500 -150 / -150 Intake: Oral 100 / 100 Output: Urine 250 / 250 Catheter 1530 / 1530 500 / 500 Incision: clean and dry (dressing to right hip is clean, dry, and intact with no visible drainage or surrounding erythema. no calf pain, good dorsiflexion of bilateral feet. grossly NV intact. Full ROM of right shoulder above head with minimal pain. ) - Diagnostic Results Shoulder x-ray: pending - Labs CBC & BMP: 06/17/18 00:44 06/17/18 00:44 Labs: Abnormal lab results RBC 5.02 M/mcL (3.82-4.97) H 06/15/18 14:46 Hgb 10.7 g/dL (11.5-15.4) L D 06/17/18 00:44 Hct 31.5 % (35.3-44.9) L 06/17/18 00:44 Neutrophils # 10.5 K/mcL (1.6-8.9) H 06/14/18 14:47 Sodium 130 mEq/L (136-145) L 06/17/18 00:44 Creatinine 0.56 mg/dL (0.60-1.20) L 06/17/18 00:44 Glucose 123 mg/dL (70-105) H 06/17/18 00:44 Calculated Osmolality 271 (280-300) L 06/17/18 00:44 Calcium 8.2 mg/dL (8.6-10.3) L 06/17/18 00:44 - VTE Contraindication No Overlap Therapy: Admin of oral Factor Xa Inhibitor Deep Vein Thrombosis/Pulmonary Embolism Present on Admission: No Consult Discharge Plan - Plan Referrals: Cordero,Shima Blackwell CNP [Primary Care Provider] -
[2018-06-17] MEDS: traMADol 50 MG TABLET PO PRN (16:21)
[2018-06-17] MEDS: Cholecalciferol (D-3) 1,000 UNIT TABLET PO SCH (16:21)
[2018-06-17] MEDS: Aspirin Enteric Coated 81 MG Tablet PO SCH (20:39)
[2018-06-17] MEDS: Loratadine 10 MG TABLET PO SCH (20:40)
[2018-06-17] MEDS: Melatonin 3 MG TABLET PO SCH (20:40)
[2018-06-18 01:02] LABS: Hematocrit 29.5 % (35.3-44.9)
[2018-06-18 01:23] LABS: BUN/Creatinine Ratio 24 (6-26); Blood Urea Nitrogen 20 mg/dL (8-23); Calcium 8.7 mg/dL (8.6-10.3); Carbon Dioxide 24 mEq/L (23-29); Chloride 101 mEq/L (98-107); Glucose 102 mg/dL (70-105); Osmolality,Calculated 275 (280-300); Potassium 4.5 mEq/L (3.5-5.1); Sodium 131 mEq/L (136-145); eGFR For Non-African Americans > 60 (> 60)
[2018-06-18] MEDS: *HR* Enoxaparin 30 MG/0.3 ML SYRINGE SQ SCH ×2 (04:49→18:08)
--- NOTE | 2018-06-18 05:46 | Internal Med Progress Note ---
Hospitalist Progress Note - Encounter Date of Encounter: 06/17/18 Time of Encounter: 11:00 - Subjective Interval History: SUBJECTIVE: The patient had surgery for repair of her right femoral neck fracture yesterday. She has not developed any chest pain or difficulty breathing. Her right hip pain is under control. She started physical therapy. She is able to walk short distances with a walker/assistance. OBJECTIVE: Skin: Free of rash and discoloration. Musculoskeletal: See orthopedic surgery evaluation. ENMT: Oral/pharyngeal mucosa is normal in appearance. Eyes: Sclera is white. There is no discharge from eyes. Respiratory: Normal breath sounds; no crackles or wheezes. CV: Heart is regular; no gallop or murmur. GI: Abdomen is soft and not tender. There is no palpable mass or visceromegaly. Neuro: There is no focal deficits. ASSESSMENT AND PLAN: Displaced fracture of right femoral neck with nondisplaced fracture of right pelvis (mild). She had surgical intervention yesterday. She started physical therapy. Will control her pain with tramadol and/or Toradol. Hypertension. Under control. Will continue propranolol. Hypothyroidism. Under control. We will continue Synthroid. - Exam Vitals: Temp Pulse Resp BP Pulse Ox 98.0 F 73 16 130/62 95 06/18/18 00:28 06/18/18 00:28 06/18/18 00:28 06/18/18 00:28 06/18/18 00:28 Exam: xx - Assessment and Plan (1) Displaced fracture of right femoral neck Current Visit: Yes Status: Acute (2) Pelvic fracture Current Visit: Yes Status: Acute (3) HTN (hypertension) Current Visit: Yes Status: Chronic (4) Hypothyroid Current Visit: Yes Status: Chronic - Time Spent with Patient Total time spent is greater than 50% in coordination of care (as documented) at patient's floor/unit and/or counseling patient: 25 - 35 minutes Plan of Care Discussed with: patient Internal Medicine: Result - Labs CBC & Chem 7: 06/18/18 00:38 06/18/18 00:38 Labs: Short CBC 06/18/18 Range/Units 00:38 Hgb 10.0 L (11.5-15.4) g/dL Hct 29.5 L (35.3-44.9) % BMP 06/18/18 00:38 Sodium 131 L Potassium 4.5 Chloride 101 Carbon Dioxide 24 BUN 20 Creatinine 0.82 Glucose 102 Calcium 8.7 - ABG Interpretation ABG results: PT/INR, D-dimer PT 11.4 Seconds (9.4-12.1) 06/15/18 14:46 - Impressions Impressions Shoulder X-Ray 06/17/18 11:08 IMPRESSION: 1. No acute abnormality. D/ / Willis Mckinley MD / Willis Mckinley MD Interpreting Provider: Willis Mckinley MD - VTE Contraindication No Overlap Therapy: Admin of oral Factor Xa Inhibitor Deep Vein Thrombosis/Pulmonary Embolism Present on Admission: No Consult Discharge Plan - Plan Referrals: Shima Cordero CNP [Primary Care Provider] - (2) Pelvic fracture Qualifiers: Encounter type: initial encounter Pelvic bone location: pubis Sublocation of pubis: unspecified portion of pubis Fracture type: closed Laterality: right Qualified Code(s): S32.501A - Unspecified fracture of right pubis, initial encounter for closed fracture (3) HTN (hypertension) Qualifiers: Hypertension type: essential hypertension Qualified Code(s): I10 - Essential (primary) hypertension (4) Hypothyroid Qualifiers: Hypothyroidism type: acquired Qualified Code(s): E03.9 - Hypothyroidism, unspecified
--- NOTE | 2018-06-18 07:05 | Orthopedics Progress Note ---
Date of Encounter: 06/18/18 Time of Encounter: 07:05 Subjective Principal diagnosis: POD#1 s/p Right hip french-arthroplasty 06/16/18 Interval history: Patient was seen this morning doing well without complaints. Afebrile vital signs stable. Operative extremity: Neurovascularly intact Dressing clean dry and intact Calves nontender Assessment and plan: Continue with postoperative care Objective Vital signs: Vital Signs Temp Pulse Resp BP Pulse Ox 06/18/18 00:28 98.0 F 73 16 130/62 95 06/17/18 18:33 98.6 F 82 17 131/69 99 06/17/18 14:00 98.3 F 93 16 134/81 95 06/17/18 09:46 98.1 F 87 16 137/73 95 Intake and Output 06/17/18 06/17/18 06/18/18 15:59 23:59 07:59 Intake Total 100 / 100 100 / 100 Output Total 250 / 250 1000 / 1000 Balance -150 / -150 100 / 100 -1000 / -1000 Intake: Oral 100 / 100 100 / 100 Output: Urine 250 / 250 1000 / 1000 - Labs CBC & BMP: 06/18/18 00:38 06/18/18 00:38 Labs: Abnormal lab results RBC 5.02 M/mcL (3.82-4.97) H 06/15/18 14:46 Hgb 10.0 g/dL (11.5-15.4) L 06/18/18 00:38 Hct 29.5 % (35.3-44.9) L 06/18/18 00:38 Neutrophils # 10.5 K/mcL (1.6-8.9) H 06/14/18 14:47 Sodium 131 mEq/L (136-145) L 06/18/18 00:38 Calculated Osmolality 275 (280-300) L 06/18/18 00:38 - VTE Contraindication No Overlap Therapy: Admin of oral Factor Xa Inhibitor Deep Vein Thrombosis/Pulmonary Embolism Present on Admission: No Consult Discharge Plan - Plan Referrals: Shima Cordero CNP [Primary Care Provider] -
[2018-06-18] MEDS: Ascorbic Acid 500 MG TABLET PO SCH ×2 (10:12→18:09)
[2018-06-18] MEDS: Gabapentin 300 MG CAPSULE PO SCH ×3 (10:13→19:54)
[2018-06-18] MEDS: Multivit/Ca/Min/Fe/FA 1 TAB TABLET PO SCH (10:13)
[2018-06-18] MEDS: LUTEIN 6 MG PO SCH (10:13)
[2018-06-18] MEDS: Fluticasone Propionate Nasal 50 MCG/SPRAY BOTTLE NS SCH (10:15)
[2018-06-18] MEDS: Propranolol LA (24 HR) 80 MG CAP.SA.24H PO SCH ×2 (10:15→20:50)
[2018-06-18] MEDS: Ketorolac 15 MG/ML VIAL IVP PRN (15:57)
[2018-06-18] MEDS: Cholecalciferol (D-3) 1,000 UNIT TABLET PO SCH (18:09)
[2018-06-18] MEDS: Aspirin Enteric Coated 81 MG Tablet PO SCH (19:52)
[2018-06-18] MEDS: Loratadine 10 MG TABLET PO SCH (19:53)
[2018-06-18] MEDS: Melatonin 3 MG TABLET PO SCH (19:54)
--- NOTE | 2018-06-18 21:54 | Internal Med Progress Note ---
Hospitalist Progress Note - Encounter Date of Encounter: 06/18/18 Time of Encounter: 19:00 - Subjective Interval History: SUBJECTIVE: The patient had surgery for repair of her right femoral neck fracture on . Her right hip pain is under control. She started physical therapy. She is able to walk short distances with a walker/assistance. OBJECTIVE: Skin: Free of rash and discoloration. Musculoskeletal: See orthopedic surgery evaluation. ENMT: Oral/pharyngeal mucosa is normal in appearance. Eyes: Sclera is white. There is no discharge from eyes. Respiratory: Normal breath sounds; no crackles or wheezes. CV: Heart is regular; no gallop or murmur. GI: Abdomen is soft and not tender. There is no palpable mass or visceromegaly. Neuro: There is no focal deficits. Her hemoglobin is 10.0. Her BMP is normal. ASSESSMENT AND PLAN: Displaced fracture of right femoral neck with nondisplaced fracture of right pelvis (mild). She had surgical intervention the day before yesterday. She started physical therapy. I will control her pain with tramadol and/or Toradol. Hypertension. Under control. Will continue propranolol. Hypothyroidism. Under control. We will continue Synthroid. - Exam Vitals: Temp Pulse Resp BP Pulse Ox 97.6 F 81 16 132/68 95 06/18/18 19:45 06/18/18 19:45 06/18/18 19:45 06/18/18 19:45 06/18/18 19:45 Exam: xx - Assessment and Plan (1) Displaced fracture of right femoral neck Current Visit: Yes Status: Acute (2) Pelvic fracture Current Visit: Yes Status: Acute (3) HTN (hypertension) Current Visit: Yes Status: Chronic (4) Hypothyroid Current Visit: Yes Status: Chronic - Time Spent with Patient Total time spent is greater than 50% in coordination of care (as documented) at patient's floor/unit and/or counseling patient: 25 - 35 minutes Plan of Care Discussed with: patient Internal Medicine: Result - Labs CBC & Chem 7: 06/18/18 00:38 06/18/18 00:38 Labs: Short CBC 06/18/18 Range/Units 00:38 Hgb 10.0 L (11.5-15.4) g/dL Hct 29.5 L (35.3-44.9) % BMP 06/18/18 00:38 Sodium 131 L Potassium 4.5 Chloride 101 Carbon Dioxide 24 BUN 20 Creatinine 0.82 Glucose 102 Calcium 8.7 - ABG Interpretation ABG results: PT/INR, D-dimer PT 11.4 Seconds (9.4-12.1) 06/15/18 14:46 - VTE Contraindication No Overlap Therapy: Admin of oral Factor Xa Inhibitor Deep Vein Thrombosis/Pulmonary Embolism Present on Admission: No Consult Discharge Plan - Plan Referrals: Gil,Shima Blackwell MAKEUP INSTRUCTOR [Primary Care Provider] - (2) Pelvic fracture Qualifiers: Encounter type: initial encounter Pelvic bone location: pubis Sublocation of pubis: unspecified portion of pubis Fracture type: closed Laterality: right Qualified Code(s): S32.501A - Unspecified fracture of right pubis, initial encounter for closed fracture (3) HTN (hypertension) Qualifiers: Hypertension type: essential hypertension Qualified Code(s): I10 - Essential (primary) hypertension (4) Hypothyroid Qualifiers: Hypothyroidism type: acquired Qualified Code(s): E03.9 - Hypothyroidism, unspecified
[2018-06-19] MEDS: *HR* Enoxaparin 30 MG/0.3 ML SYRINGE SQ SCH ×2 (06:53→17:58)
[2018-06-19] MEDS: Multivit/Ca/Min/Fe/FA 1 TAB TABLET PO SCH (08:18)
[2018-06-19] MEDS: Gabapentin 300 MG CAPSULE PO SCH ×3 (08:18→21:24)
[2018-06-19] MEDS: Ascorbic Acid 500 MG TABLET PO SCH ×2 (08:18→17:17)
[2018-06-19] MEDS: LUTEIN 6 MG PO SCH (08:19)
[2018-06-19] MEDS: Fluticasone Propionate Nasal 50 MCG/SPRAY BOTTLE NS SCH (08:30)
[2018-06-19] MEDS: Propranolol LA (24 HR) 80 MG CAP.SA.24H PO SCH ×2 (09:23→21:24)
[2018-06-19] MEDS: traMADol 50 MG TABLET PO PRN (15:54)
[2018-06-19] MEDS: Cholecalciferol (D-3) 1,000 UNIT TABLET PO SCH (17:17)
[2018-06-19] MEDS: Ketorolac 15 MG/ML VIAL IVP PRN (18:19)
[2018-06-19] MEDS: Melatonin 3 MG TABLET PO SCH (21:24)
[2018-06-19] MEDS: Loratadine 10 MG TABLET PO SCH (21:25)
[2018-06-19] MEDS: Aspirin Enteric Coated 81 MG Tablet PO SCH (21:25)
--- NOTE | 2018-06-19 23:02 | Internal Med Progress Note ---
Hospitalist Progress Note - Encounter Date of Encounter: 06/19/18 Time of Encounter: 19:00 - Subjective Interval History: SUBJECTIVE: The patient had surgery for repair of her right femoral neck fracture on . Her right hip pain is under control. She is doing physical therapy. She is able to walk short distances with a walker/assistance. OBJECTIVE: Skin: Free of rash and discoloration. Musculoskeletal: See orthopedic surgery evaluation. ENMT: Oral/pharyngeal mucosa is normal in appearance. Eyes: Sclera is white. There is no discharge from eyes. Respiratory: Normal breath sounds; no crackles or wheezes. CV: Heart is regular; no gallop or murmur. GI: Abdomen is soft and not tender. There is no palpable mass or visceromegaly. Neuro: There is no focal deficits. Her hemoglobin is 10.0. Her BMP is normal. ASSESSMENT AND PLAN: Displaced fracture of right femoral neck with nondisplaced fracture of right pelvis (mild). She had surgical intervention on 06/16/18. She started physical therapy. I will control her pain with tramadol and/or Toradol. We will get her to [facility], when a bed is available. Hypertension. Under control. Will continue propranolol. Hypothyroidism. Under control. We will continue Synthroid. - Exam Vitals: Temp Pulse Resp BP Pulse Ox 98.1 F 76 16 140/76 96 06/19/18 22:10 06/19/18 22:10 06/19/18 22:10 06/19/18 22:10 06/19/18 22:10 Exam: xx - Assessment and Plan (1) Displaced fracture of right femoral neck Current Visit: Yes Status: Acute (2) Pelvic fracture Current Visit: Yes Status: Acute (3) HTN (hypertension) Current Visit: Yes Status: Chronic (4) Hypothyroid Current Visit: Yes Status: Chronic - Time Spent with Patient Total time spent is greater than 50% in coordination of care (as documented) at patient's floor/unit and/or counseling patient: 25 - 35 minutes Plan of Care Discussed with: patient Internal Medicine: Result - Labs CBC & Chem 7: 06/18/18 00:38 06/18/18 00:38 - ABG Interpretation ABG results: PT/INR, D-dimer PT 11.4 Seconds (9.4-12.1) 09/12/18 14:46 - VTE Contraindication No Overlap Therapy: Admin of oral Factor Xa Inhibitor Deep Vein Thrombosis/Pulmonary Embolism Present on Admission: No Consult Discharge Plan - Plan Referrals: Shima Cordero CNP [Primary Care Provider] - (2) Pelvic fracture Qualifiers: Encounter type: initial encounter Pelvic bone location: pubis Sublocation of pubis: unspecified portion of pubis Fracture type: closed Laterality: right Qualified Code(s): S32.501A - Unspecified fracture of right pubis, initial encounter for closed fracture (3) HTN (hypertension) Qualifiers: Hypertension type: essential hypertension Qualified Code(s): I10 - Essential (primary) hypertension (4) Hypothyroid Qualifiers: Hypothyroidism type: acquired Qualified Code(s): E03.9 - Hypothyroidism, unspecified
[2018-06-20 01:32] LABS: Basophils % 0.4 %; Eosinophils # 0.3 K/mcL (0.0-0.6); Hematocrit 30.1 % (35.3-44.9); Hemoglobin 10.3 g/dL (11.5-15.4); Immature Granulocytes % 0.7 % (0-4); Lymphocytes # 1.8 K/mcL (0.6-4.6); Lymphocytes % 23.4 %; Mean Corpuscular HGB Conc 34.2 g/dL (31.6-35.5); Mean Corpuscular Hemoglobin 30.8 pg (28.0-33.3); Mean Corpuscular Volume 90.1 fL (83.0-100.0); Mean Platelet Volume 10.3 fL (9.4-12.4); Monocytes # 1.1 K/mcL (0.0-1.3); Monocytes % 14.4 %; Neutrophils # 4.3 K/mcL (1.6-8.9); Platelet Count 152 K/mcL (140-400); Red Blood Count 3.34 M/mcL (3.82-4.97); Red Cell Distribution Width 12.8 % (11.5-14.5); Segmented Neutrophils % 57.1 %
[2018-06-20 01:37] LABS: BUN/Creatinine Ratio 32 (6-26); Blood Urea Nitrogen 19 mg/dL (8-23); Calcium 9.1 mg/dL (8.6-10.3); Carbon Dioxide 25 mEq/L (23-29); Chloride 99 mEq/L (98-107); Glucose 114 mg/dL (70-105); Osmolality,Calculated 273 (280-300); Potassium 4.6 mEq/L (3.5-5.1); Sodium 130 mEq/L (136-145); eGFR For Non-African Americans > 60 (> 60)
[2018-06-20 01:49] LABS: Thyroid Stimulating Hormone 0.455 mcIU/mL (0.340-5.600)
[2018-06-20] MEDS: traMADol 50 MG TABLET PO PRN ×2 (01:59→16:55)
[2018-06-20] MEDS: *HR* Enoxaparin 30 MG/0.3 ML SYRINGE SQ SCH ×2 (06:01→16:55)
[2018-06-20] MEDS: Multivit/Ca/Min/Fe/FA 1 TAB TABLET PO SCH (07:27)
[2018-06-20] MEDS: Propranolol LA (24 HR) 80 MG CAP.SA.24H PO SCH ×2 (07:27→20:45)
[2018-06-20] MEDS: Gabapentin 300 MG CAPSULE PO SCH ×3 (07:28→20:44)
[2018-06-20] MEDS: Ascorbic Acid 500 MG TABLET PO SCH ×2 (07:28→16:55)
[2018-06-20] MEDS: Fluticasone Propionate Nasal 50 MCG/SPRAY BOTTLE NS SCH (07:28)
[2018-06-20] MEDS: LUTEIN 6 MG PO SCH (07:29)
--- NOTE | 2018-06-20 12:38 | Orthopedics Progress Note ---
Date of Encounter: 06/20/18 Time of Encounter: 11:40 - Assessment and Plan (1) Displaced fracture of right femoral neck Current Visit: Yes Status: Acute POD#4 s/p right hip hemiarthroplasty 06/16/18 dressings c/d/i. Continue to ice to right hip as needed. Continue with therapy - WBAT with walker DVT prophylaxis - lovenox x 2 weeks then aspirin Plan for DC [facility] once approved - [facility] Will follow up with Rafia Rust PA-C in [facility] office on 06/29/18 at 10:30am. (2) Acute pain of left foot Current Visit: Yes Status: Acute full ROM ankle and foot. improving pain. WBAT. ROM as tolerated. Conservative treatment - ice and elevate as needed. (3) Right shoulder pain Current Visit: Yes Status: Acute Pain much improved per patient and she has full ROM above head with little difficulty. Xrays from 06/17 show no acute bony abnormality. Conservative management. Qualifiers: Qualified Code(s): M25.511 - Pain in right shoulder; G89.29 - Other chronic pain Subjective Principal diagnosis: POD#4 s/p Right hip french-arthroplasty 06/16/18 Interval history: Patient doing well today. States minimal pain to hip. Has had some pain to groin area when straining but otherwise pain overall is much improved to hip, shoulder and foot. States therapy has been going well and she was able to walk to restroom with walker. Has been putting full weight through leg with no problem. Denies any concerns at this time. Objective Vital signs: Vital Signs Temp Pulse Resp BP Pulse Ox 06/20/18 10:43 97.5 F L 80 16 109/70 90 06/20/18 06:45 98.2 F 75 18 127/68 95 06/19/18 22:10 98.1 F 76 16 140/76 96 06/19/18 19:11 99.0 F 77 16 159/71 99 06/19/18 15:51 97.6 F 98 20 151/71 95 Intake and Output 06/19/18 06/20/18 06/20/18 23:59 07:59 15:59 Intake Total 100 / 100 600 / 600 Output Total 700 / 700 600 / 600 Balance -600 / -600 -600 / -600 600 / 600 Intake: Oral 100 / 100 600 / 600 Output: Urine 700 / 700 600 / 600 Other: Meal Breakfast Percent of Meal Consumed 75% Stool Size Small Stool Consistency formed Stool Color Brown # Voids 1 # Bowel Movements 1 Incision: clean and dry (dressings to right hip c/d/i with no visible drainage or surrounding erythema. No calf tenderness to palpation. good dorsiflexion of bilateral feet. grossly NV intact.) - Labs CBC & BMP: 06/20/18 00:51 06/20/18 00:51 Labs: Abnormal lab results RBC 3.34 M/mcL (3.82-4.97) L 06/20/18 00:51 Hgb 10.3 g/dL (11.5-15.4) L 06/20/18 00:51 Hct 30.1 % (35.3-44.9) L 06/20/18 00:51 Sodium 130 mEq/L (136-145) L 06/20/18 00:51 BUN/Creatinine Ratio 32 (6-26) H 06/20/18 00:51 Glucose 114 mg/dL (70-105) H 06/20/18 00:51 Calculated Osmolality 273 (280-300) L 06/20/18 00:51 - VTE Contraindication No Overlap Therapy: Admin of oral Factor Xa Inhibitor Deep Vein Thrombosis/Pulmonary Embolism Present on Admission: No Consult Discharge Plan - Plan Referrals: Rafia Rust, PAC [Physician Knitting Machine Fixer Head] - 06/29/18 10:30 am
[2018-06-20] MEDS: Cholecalciferol (D-3) 1,000 UNIT TABLET PO SCH (16:55)
[2018-06-20] MEDS: Aspirin Enteric Coated 81 MG Tablet PO SCH (20:44)
[2018-06-20] MEDS: Melatonin 3 MG TABLET PO SCH (20:44)
[2018-06-20] MEDS: Loratadine 10 MG TABLET PO SCH (20:44)
[2018-06-20] MEDS ORDERED: NON-FORMULARY MEDICATION 1 EACH EACH (Alendronate Sodium [Fosamax] 70 MG) PO SCH (22:09)
--- NOTE | 2018-06-21 00:25 | Internal Med Progress Note ---
Hospitalist Progress Note - Encounter Date of Encounter: 06/20/18 Time of Encounter: 19:00 - Subjective Interval History: SUBJECTIVE: The patient had surgery for repair of her right femoral neck fracture on . Her right hip pain is under control. She is doing physical therapy. She is able to walk short distances with a walker/assistance. Chest pain. Denies difficulty breathing. Her pulse ox is 95% on FiO2 of 24%. She uses incentive spirometery. OBJECTIVE: Skin: Free of rash and discoloration. Musculoskeletal: See orthopedic surgery evaluation. ENMT: Oral/pharyngeal mucosa is normal in appearance. Eyes: Sclera is white. There is no discharge from eyes. Respiratory: Normal breath sounds; no crackles or wheezes. CV: Heart is regular; no gallop or murmur. GI: Abdomen is soft and not tender. There is no palpable mass or visceromegaly. Neuro: There is no focal deficits. Her hemoglobin is 10.0. Her BMP is normal. ASSESSMENT AND PLAN: Displaced fracture of right femoral neck with nondisplaced fracture of right pelvis (mild). She had surgical intervention on 06/16/18. She started physical therapy. I will control her pain with tramadol and/or Toradol. We will get her to [facility], when a bed is available. Hypertension. Under control. Will continue propranolol. Hypothyroidism. Under control. We will continue Synthroid. Disposition: I referral has been made to [facility]. - Exam Vitals: Temp Pulse Resp BP Pulse Ox 98.4 F 81 16 124/70 95 06/20/18 23:15 06/20/18 23:15 06/20/18 23:15 06/20/18 23:15 06/20/18 23:15 Exam: ee - Assessment and Plan (1) Displaced fracture of right femoral neck Current Visit: Yes Status: Acute (2) Pelvic fracture Current Visit: Yes Status: Acute (3) HTN (hypertension) Current Visit: Yes Status: Chronic (4) Hypothyroid Current Visit: Yes Status: Chronic - Time Spent with Patient Total time spent is greater than 50% in coordination of care (as documented) at patient's floor/unit and/or counseling patient: 25 - 35 minutes Plan of Care Discussed with: patient (with family) Internal Medicine: Result - Labs CBC & Chem 7: 06/20/18 00:51 06/20/18 00:51 Labs: Short CBC 06/20/18 Range/Units 00:51 WBC 7.6 (4.3-11.1) K/mcL Hgb 10.3 L (11.5-15.4) g/dL Hct 30.1 L (35.3-44.9) % Plt Count 152 (140-400) K/mcL Neutrophils # 4.3 (1.6-8.9) K/mcL BMP 06/20/18 00:51 Sodium 130 L Potassium 4.6 Chloride 99 Carbon Dioxide 25 BUN 19 Creatinine 0.60 Glucose 114 H Calcium 9.1 - ABG Interpretation ABG results: PT/INR, D-dimer PT 11.4 Seconds (9.4-12.1) 06/15/18 14:46 - VTE Documentation of Mechanical Device: Venous foot pump, device Contraindication No Overlap Therapy: Admin of oral Factor Xa Inhibitor Deep Vein Thrombosis/Pulmonary Embolism Present on Admission: No Consult Discharge Plan - Plan Referrals: Rafia Rust, PAC [Physician Delivery Specialist] - 06/29/18 10:30 am (2) Pelvic fracture Qualifiers: Encounter type: initial encounter Pelvic bone location: pubis Sublocation of pubis: unspecified portion of pubis Fracture type: closed Laterality: right Qualified Code(s): S32.501A - Unspecified fracture of right pubis, initial encounter for closed fracture (3) HTN (hypertension) Qualifiers: Hypertension type: essential hypertension Qualified Code(s): I10 - Essential (primary) hypertension (4) Hypothyroid Qualifiers: Hypothyroidism type: acquired Qualified Code(s): E03.9 - Hypothyroidism, unspecified
[2018-06-21] MEDS: *HR* Enoxaparin 30 MG/0.3 ML SYRINGE SQ SCH (05:16)
[2018-06-21] MEDS: Propranolol LA (24 HR) 80 MG CAP.SA.24H PO SCH (09:24)
[2018-06-21] MEDS: Gabapentin 300 MG CAPSULE PO SCH (09:25)
[2018-06-21] MEDS: Ascorbic Acid 500 MG TABLET PO SCH (09:25)
[2018-06-21] MEDS: LUTEIN 6 MG PO SCH (09:25)
[2018-06-21] MEDS: Multivit/Ca/Min/Fe/FA 1 TAB TABLET PO SCH (09:25)
[2018-06-21] MEDS: Fluticasone Propionate Nasal 50 MCG/SPRAY BOTTLE NS SCH (09:29)
[2018-06-21] MEDS: traMADol 50 MG TABLET PO PRN (12:25)
--- NOTE | 2018-06-21 14:02 | Discharge Summary ---
- NOTES TO OUTPATIENT PROVIDER Notes to Outpatient Provider: Rafia Rust PA-C in [facility] office on 06/29/18 at 10:30am. 2 weeks of lovenox for vte ppx then resume home asa Date of Encounter: 06/21/18 Time of Encounter: 09:45 - Discharge Diagnosis (1) Displaced fracture of right femoral neck Priority: Primary Status: Acute Assessment and Plan: Displaced fracture of right femoral neck with nondisplaced fracture of right pelvis (mild). She had surgical intervention on 06/16/18. She started physical therapy. --prn tramadol -dispo is to snf for rehab -ortho fu in place, pt to dc on lovenox x2 weeks then resume home daily asa (2) Pelvic fracture Priority: Primary Status: Acute Assessment and Plan: no surgical intervention required ortho surg followed dc and vte ppx as above Qualifiers: Encounter type: initial encounter Pelvic bone location: pubis Sublocation of pubis: unspecified portion of pubis Fracture type: closed Laterality: right Qualified Code(s): S32.501A - Unspecified fracture of right pubis, initial encounter for closed fracture (3) HTN (hypertension) Priority: Secondary Status: Chronic Assessment and Plan: stable cont home meds Qualifiers: Hypertension type: essential hypertension Qualified Code(s): I10 - Essential (primary) hypertension (4) Hypothyroid Priority: Secondary Status: Chronic Assessment and Plan: cont synthroid Qualifiers: Hypothyroidism type: acquired Qualified Code(s): E03.9 - Hypothyroidism, unspecified Hospital course: Ms. Boyce is a 77 year old female who presented to hospital with fall and found to have right femoral neck fracture and right pubis fracture. She was treated by ortho surgery for hip fracture. Post op care as per ortho and is dc to ECF for rehab. For details of entire course see assessment/plan section. She is dc to ecf in stable condition with ortho fu and vte ppx with lovenox for two weeks Discharge discussed with: patient - Time Spent with Patient Total time spent providing and/or coordinating discharge services: Less than 30 minutes - Discharge Medications Prescriptions: Tramadol HCl [Ultram] 50 mg PO Q8H PRN 3 Days #3 tab PRN Reason: Severe Pain Home Medications: Alendronate Sodium [Fosamax] 70 mg PO MO 06/14/18 [History] Amitriptyline HCl 75 mg PO HS 06/14/18 [History] Calcium Carbonate [Calcium] 600 mg PO DAILY 06/14/18 [History] Ergocalciferol (VITAMIN D2) [Vitamin D] 800 unit PO QPM 06/14/18 [History] Fluticasone Propionate Nasal [Flonase] 2 spr NS DAILY 06/14/18 [History] Gabapentin [Neurontin] 300 mg PO TID 06/14/18 [History] Levothyroxine [Synthroid] 100 mcg PO 0630 06/14/18 [History] Loratadine [Allergy Relief] 10 mg PO HS 06/14/18 [History] Lutein 6 mg PO DAILY 06/14/18 [History] Melatonin [Melatin] 3 mg PO HS 06/14/18 [History] Multivitamin [One Daily Multivitamin] 1 tab PO DAILY 06/14/18 [History] [place]-3/Dha/Epa/Fish Oil [Fish Oil 1,000 mg Softgel] 1 cap PO DAILY 06/14/18 [ History] Ondansetron HCl [Zofran] 4 mg PO Q8HR PRN 06/14/18 [History] Propranolol HCl [Inderal LA] 160 mg PO BID 06/14/18 [History] Ascorbic Acid [Vitamin C] 500 mg PO BIDWM tablet 06/21/18 [Rx] Docusate [Colace] 100 mg PO BID capsule 06/21/18 [Rx] Enoxaparin [Lovenox] 30 mg SQ Q12HCO 14 Days syringe 06/21/18 [Rx] Ferrous Sulfate 325 mg PO BIDWM tablet 06/21/18 [Rx] MOM Conc [MILK OF MAGNESIA conc] 5 ml PO HS PRN ud.liq 06/21/18 [Rx] Tramadol HCl [Ultram] 50 mg PO Q8H PRN 3 Days #3 tab 06/21/18 [Rx] Aspirin [Lo-Dose Aspirin EC] 81 mg PO HS #1 07/05/18 [Rx] Allergies/Adverse Reactions: 3 Allergy/AdvReac Type Severity Reaction Status Date / Time Amoxicillin [From Amoxil] Allergy Rash Verified 01/14/18 17:01 clindamycin Allergy Rash Verified 01/14/18 17:01 sulfamethoxazole Allergy Rash Verified 01/14/18 17:01 [From ] trimethoprim [From ] Allergy Rash Verified 01/14/18 17:01 Date of admission: 06/15/18 01:33 Primary care physician: Shima Cordero CNP Consults: 06/16/18 13:28 Consult to Nurse Navigator [CONS] Routine Comment: ortho navigator Consult to Occupational Therapy [CONS] Routine Comment: Evaluate, develop and implement POC Reason for Consult: total hip replacement Does patient have active BEDREST order?: No Is patient medically & hemodynamically stable?: Yes Consult to Physical Therapy [CONS] Routine Comment: Evaluate, develop and implement POC Reason for Consult: total hip replacement Does patient have active BEDREST order?: No Is patient medically & hemodynamically stable?: Yes Consult to Casino Cashier [CONS] Routine Reason for SW Consult: post op joint replacement RT Post Op Consult [CONS] Routine Discharging clinician: Shona aPrra - Constitutional Vitals: Temp Pulse Resp BP Pulse Ox 98.7 F 75 18 132/67 97 06/21/18 11:39 06/21/18 11:39 06/21/18 11:39 06/21/18 11:39 06/21/18 11:39 General appearance: Present: A&O X 3, no acute distress, answers questions appropriately Exam: General: awake, alert, appears stated age Cardiovascular:regular rate and rhythm, normal S1 & S2, no rubs, murmurs or gallops. No JVD. no lower extremity edema Lungs:Normal breath sounds, no wheezes, or crackles. Normal respiratory effort Abdomen:Soft, non-tender, non-distended, + bowel sounds Extremities:right hip dressing c/d/i, no hematoma palpable, rom rle intact Neurological: AAOx3, sensation to light touch intact and equal in bl le Skin:Normal color, no rash, no pallor - Patient Status Disposition: Transfer SNF Condition: Good Overall status at discharge: patient is not back to baseline - Discharge Instructions Follow Up With: Rafia Rust PAC [Physician Smasher Hand] - 06/29/18 10:30 am Forms: ED Satisfaction Letter - Diet and Activity Activity: increase activity as tolerated Diet: advance to your usual diet - VTE Documentation of Mechanical Device: Venous foot pump, device Contraindication No Overlap Therapy: Admin of oral Factor Xa Inhibitor Deep Vein Thrombosis/Pulmonary Embolism Present on Admission: No
--- NOTE | 2018-06-21 14:22 | Physician Discharge Referral ---
ExtendedCare Referral Info Transfer To: snf Provider in Charge after Transfer: PCP Institutional Level of Care: Skilled - Diagnosis (1) Displaced fracture of right femoral neck Priority: Primary Status: Acute (2) Pelvic fracture Priority: Primary Status: Acute (3) HTN (hypertension) Priority: Secondary Status: Chronic (4) Hypothyroid Priority: Secondary Status: Chronic Prognosis: Good - Transfer Medications Prescriptions: Tramadol HCl [Ultram] 50 mg PO Q8H PRN 3 Days #3 tab PRN Reason: Severe Pain Home Medications: Alendronate Sodium [Fosamax] 70 mg PO MO 06/14/18 [History] Amitriptyline HCl 75 mg PO HS 06/14/18 [History] Calcium Carbonate [Calcium] 600 mg PO DAILY 06/14/18 [History] Ergocalciferol (VITAMIN D2) [Vitamin D] 800 unit PO QPM 06/14/18 [History] Fluticasone Propionate Nasal [Flonase] 2 spr NS DAILY 06/14/18 [History] Gabapentin [Neurontin] 300 mg PO TID 06/14/18 [History] Levothyroxine [Synthroid] 100 mcg PO 0630 06/14/18 [History] Loratadine [Allergy Relief] 10 mg PO HS 06/14/18 [History] Lutein 6 mg PO DAILY 06/14/18 [History] Melatonin [Melatin] 3 mg PO HS 06/14/18 [History] Multivitamin [One Daily Multivitamin] 1 tab PO DAILY 06/14/18 [History] [place]-3/Dha/Epa/Fish Oil [Fish Oil 1,000 mg Softgel] 1 cap PO DAILY 06/14/18 [ History] Ondansetron HCl [Zofran] 4 mg PO Q8HR PRN 06/14/18 [History] Propranolol HCl [Inderal LA] 160 mg PO BID 06/14/18 [History] Ascorbic Acid [Vitamin C] 500 mg PO BIDWM tablet 06/21/18 [Rx] Docusate [Colace] 100 mg PO BID capsule 06/21/18 [Rx] Enoxaparin [Lovenox] 30 mg SQ Q12HCO 14 Days syringe 06/21/18 [Rx] Ferrous Sulfate 325 mg PO BIDWM tablet 06/21/18 [Rx] MOM Conc [MILK OF MAGNESIA conc] 5 ml PO HS PRN ud.liq 06/21/18 [Rx] Tramadol HCl [Ultram] 50 mg PO Q8H PRN 3 Days #3 tab 06/21/18 [Rx] Aspirin [Lo-Dose Aspirin EC] 81 mg PO HS #1 07/05/18 [Rx] Allergies/Adverse Reactions: 3 Allergy/AdvReac Type Severity Reaction Status Date / Time Amoxicillin [From Amoxil] Allergy Rash Verified 01/14/18 17:01 clindamycin Allergy Rash Verified 01/14/18 17:01 sulfamethoxazole Allergy Rash Verified 01/14/18 17:01 [From Septra] trimethoprim [From Septra] Allergy Rash Verified 01/14/18 17:01 - Respiratory Orders None Smoking Cessation: Smoking cessation has been advised. For more information, call the [employer] Tobacco Quit Line at 2-406-HTEP-NOW. - Rehabiliation Orders Rehab Potential: Good Rehab Orders: Evaluation for Physical Therapy, Evaluation for Occupational Therapy Other: she has follow up appt with ortho as noted in dc summary - Diet Orders Cardiac CERTIFICATION: I certify that the transfer of the above named patient to an Extended Care Facility is necessary for the continuing treatment of the diagnosis listed. The above information is true and accurate reflection of patient's current condition. Confidential - Redisclosure prohibited without a patient's written consent.
[2018-06-21 15:22] VITALS: BP 108/74
[2018-06-21] MEDS ORDERED: traMADol 50 MG TABLET PO ONE (16:01)
--- NOTE | 2018-06-21 19:31 | Orthopedics Progress Note ---
Date of Encounter: 06/21/18 Time of Encounter: 12:55 - Assessment and Plan (1) Displaced fracture of right femoral neck Status: Acute POD#5 s/p right hip hemiarthroplasty 06/16/18 dressings c/d/i. Continue to ice to right hip as needed. Continue with therapy - WBAT with walker DVT prophylaxis - lovenox x 2 weeks then aspirin Plan for DC to ECF - [facility] - still awaiting placement, hopeful for today to hear back. Will follow up with Rafia Rust PA-C in [facility] office on 06/29/18 at 10:30am. (2) Acute pain of left foot Status: Acute full ROM ankle and foot. improving pain. WBAT. ROM as tolerated. Conservative treatment - ice and elevate as needed. (3) Right shoulder pain Status: Acute Pain much improved per patient and she has full ROM above head with little difficulty. Xrays from 06/17 show no acute bony abnormality. Conservative management. Qualifiers: Qualified Code(s): M25.511 - Pain in right shoulder; G89.29 - Other chronic pain (4) Pelvic fracture Status: Acute continue conservative management. No surgical intervention. WBAT. Qualifiers: Encounter type: subsequent encounter Pelvic bone location: pubis Sublocation of pubis: unspecified portion of pubis Fracture type: closed Laterality: right Qualified Code(s): S32.501D - Unspecified fracture of right pubis, subsequent encounter for fracture with routine healing Subjective Principal diagnosis: POD#5 s/p Right hip french-arthroplasty 06/16/18 Interval history: Patient doing well today. States minimal pain to hip. Has had some pain to groin area with certain motions but otherwise pain overall continues to improve to hip, shoulder and foot. States therapy has been going well and she was able to walk to restroom with walker. Has been putting full weight through leg with no problem. Denies any concerns at this time. Objective Vital signs: Vital Signs Temp Pulse Resp BP Pulse Ox 06/21/18 15:21 98.0 F 76 15 108/74 93 06/21/18 11:39 98.7 F 75 18 132/67 97 06/21/18 07:39 98.2 F 72 16 113/73 94 06/21/18 04:46 98.0 F 74 16 129/67 94 06/20/18 23:15 98.4 F 81 16 124/70 95 06/20/18 20:55 94 06/20/18 20:53 98.4 F 83 16 143/62 96 Intake and Output 06/21/18 06/21/18 06/21/18 07:59 15:59 23:59 Intake Total 240 / 240 Balance 240 / 240 Intake: Oral 240 / 240 Other: Meal Breakfast Percent of Meal Consumed 80% Stool Size Moderate Stool Consistency soft Stool Characteristics Normal for Patient Stool Color Brown # Voids 1 1 # Bowel Movements 1 Weight 48.3 kg Patient Weight 06/21/18 23:59 Weight 48.3 kg Incision: clean and dry (dressings to right hip c/d/i with no visible drainage or surrounding erythema. No calf tenderness to palpation. good dorsiflexion of foot. grossly NV intact.) - Labs CBC & BMP: 06/20/18 00:51 06/20/18 00:51 Labs: Abnormal lab results RBC 3.34 M/mcL (3.82-4.97) L 06/20/18 00:51 Hgb 10.3 g/dL (11.5-15.4) L 06/20/18 00:51 Hct 30.1 % (35.3-44.9) L 06/20/18 00:51 Sodium 130 mEq/L (136-145) L 06/20/18 00:51 BUN/Creatinine Ratio 32 (6-26) H 06/20/18 00:51 Glucose 114 mg/dL (70-105) H 06/20/18 00:51 Calculated Osmolality 273 (280-300) L 06/20/18 00:51 - VTE Documentation of Mechanical Device: Venous foot pump, device Contraindication No Overlap Therapy: Admin of oral Factor Xa Inhibitor Deep Vein Thrombosis/Pulmonary Embolism Present on Admission: No Consult Discharge Plan - Plan Additional Instructions: Discharge Instructions: Total Hip Replacement Please call [facility] ([phone]), your Primary Care Physician, or report to the Emergency Room if you have any of the following symptoms: Nausea, vomiting, fever greater that 101.5, swelling, chest pain, shortness of breath, increased pain/redness/drainage/odor for your incision site, numbness/ tingling, or any other concerning symptoms. ACTIVITY:Weight-bearing as tolerated for 8 weeks with hip dislocation precautions that physical therapy taught you. You may progress as tolerated under the guidance of your physical therapist. You do not need to sleep with a pillow between your legs. You can also seep on the operative side or on your stomach. Incentive Spirometer 10 times an hour. MEDICATIONS: Upon discharge resume your home medications. Take all the medications as prescribed. Take a stool softener if taking narcotic pain medications. Stool softeners are only effective if you drink enough fluids. Drink 6-8 glass of water or fluids a day, unless this is not allowed for another health problem. Despite using stool softeners, if you haven't had a bowel movement in 3 days, please switch to a gentle laxative. Gentle laxatives are sold over the counter. You should have a bowel movement within 24 hours, if not call the office. You will be discharged from the hospital with a prescription for pain medication. You are encouraged to decrease the use of narcotic pain medication as tolerated. Should you require a refill, please call the office. [facility] prescribes narcotic pain medication for only 4-6 weeks after surgery. If you require pain medication beyond this time period, you may be referred to your Primary Care Physician or to the Pain Clinic for further evaluation. Plan ahead for refills on pain medication as many narcotics either need to be picked up at the office or mailed. It is best to call 48-72 hours in advance of needing a prescription refill so you don't run out of medication. To help control the post-operative pain, you may take NSAIDs (Aleve,Advil, Motrin, ibuprofen, naprosyn) or Tylenol as prescribed on the bottle in addition to the pain medication. ANTICOAGULATION (blood thinners): Continue your Aspirin, Lovenox or Coumadin as prescribed to help prevent a blood clot in the leg or in the lungs. As long as your incision remains dry and you tolerate the NSAIDs (Aleve, Advil, Motrin, Ibuprofen, Naprosyn), it is OK to use the NSAIDS while you are taking your anticoagulation medication. Should your incision start to drain, stop the NSAID and contact our office. Common symptoms of blood clot in the legs include: localized pain, swelling, calf tenderness, redness or discoloration of the skin. Blood clot in the lung symptoms include: shortness of breath, rapid pulse, sweating, and chest pain that worsens with deep breathing, coughing up blood, lightheadedness, feelings of anxiety. If you experience any of these symptoms notify your physician immediately, go to the emergency room, or if having trouble breathing, call 911. WOUND CARE: Leave the dressing on for 7 to 10days. You may change the dressing if it is saturated greater than 50%. Do not get the dressing wet at anytime. Wash your hands with antibacterial soap, rinse and dry prior to any wound care. If you have renate the visiting nurse or rehab facility can remove the stapes 10-14 days after surgery and place steri-strips across the wound. Leave the steri-strips in place until they fall off on their own. You may let water from the shower run on top of the steri-strips. If you do not have a visiting nurse or rehab facility, you will need to return to the office at 10-14 days for the renate to be removed. If you have itching or redness around the dressing call the office. FOLLOW-UP: Please follow up with your surgeon in the orthopedic clinic in 6 weeks from the day of surgery. If you have renate that need to be removed, you will need to come back to the office in 10-14 days from the day of surgery. Referrals: Rafia Rust PAC [Physician Program Specialist] - 06/29/18 10:30 am Prescriptions: Tramadol HCl [Ultram] 50 mg PO Q8H PRN 3 Days #3 tab PRN Reason: Severe Pain
== END 2018-06-21 16:22 | DRG 956 ==
LOC: EMEROOARM 13:25 → 3NENU 13:25 → SUATTDRO 06-15 01:33
PROVIDERS: ADMIT Student in an Organized Health Care Education/Training Program; ATTEND Internal Medicine

== ENCOUNTER 2019-10-06 11:24 | Inpatient (IN) ==
[2019-10-06] MEDS ORDERED: Ondansetron 4 MG/2 ML VIAL IVP ONE (11:35)
[2019-10-06] MEDS ORDERED: *HR* HYDROmorphone (PF) 1 MG/ML SYRINGE IM ONE (11:40)
[2019-10-06 12:08] LABS: Basophils % 0.5 %; Eosinophils # 0.1 K/mcL (0.0-0.6); Eosinophils % 1.5 %; Hematocrit 43.6 % (35.3-44.9); Hemoglobin 14.7 g/dL (11.5-15.4); Lymphocytes # 1.3 K/mcL (0.6-4.6); Lymphocytes % 22.7 %; Mean Corpuscular HGB Conc 33.7 g/dL (31.6-35.5); Mean Corpuscular Hemoglobin 31.1 pg (28.0-33.3); Mean Corpuscular Volume 92.2 fL (83.0-100.0); Mean Platelet Volume 9.5 fL (9.4-12.4); Monocytes # 0.7 K/mcL (0.0-1.3); Monocytes % 11.2 %; Neutrophils # 3.7 K/mcL (1.6-8.9); Platelet Count 199 K/mcL (140-400); Red Blood Count 4.73 M/mcL (3.82-4.97); Red Cell Distribution Width 12.7 % (11.5-14.5); Segmented Neutrophils % 63.1 %; White Blood Count 5.9 K/mcL (4.3-11.1)
[2019-10-06 13:00] LABS: Alanine Aminotransferase 30 Units/L (7-52); Albumin 4.3 g/dL (3.5-5.7); Albumin/Globulin Ratio 1.5 (1.1-2.2); Alkaline Phosphatase 79 Units/L (34-104); Aspartate Amino Transferase 34 Units/L (13-39); BUN/Creatinine Ratio 17 (6-26); Bilirubin,Total 0.7 mg/dL (0.3-1.0); Blood Urea Nitrogen 12 mg/dL (8-23); Calcium 10.2 mg/dL (8.6-10.3); Carbon Dioxide 28 mEq/L (23-29); Chloride 97 mEq/L (98-107); Globulin 2.9 g/dL (2.4-3.5); Glucose 134 mg/dL (70-105); Osmolality,Calculated 280 (280-300); Potassium 3.9 mEq/L (3.5-5.1); Sodium 134 mEq/L (136-145); Total Protein 7.2 g/dL (6.4-8.9); eGFR For African Americans > 60 (> 60); eGFR For Non-African Americans > 60 (> 60)
[2019-10-06] MEDS ORDERED: *HR* HYDROmorphone (PF) 1 MG/ML SYRINGE IVP ONE ×3 (13:06→14:48)
[2019-10-06] MEDS ORDERED: Ibuprofen 400 MG TABLET PO PRN (16:26)
[2019-10-06] MEDS ORDERED: Naloxone 0.4 MG/ML INJ IVP PRN (16:26)
[2019-10-06] MEDS: Ascorbic Acid 500 MG TABLET PO SCH (17:28)
[2019-10-06] MEDS: *HR* OxyCODONE Immed Rel 5 MG TABLET PO PRN ×2 (17:33→23:33)
[2019-10-06] MEDS: Propranolol LA (24 HR) 80 MG CAP.SA.24H PO SCH (20:00)
[2019-10-06] MEDS: *HR* HYDROcodone/Acet 5/325 mg TABLET PO PRN (20:00)
[2019-10-06] MEDS: Gabapentin 300 MG CAPSULE PO SCH (20:01)
[2019-10-06] MEDS ORDERED: *HR* Heparin 5,000 UNIT/ML VIAL SQ SCH (22:00)
[2019-10-07] MEDS: *HR* HYDROcodone/Acet 5/325 mg TABLET PO PRN (07:38)
[2019-10-07] MEDS: Ascorbic Acid 500 MG TABLET PO SCH (09:30)
[2019-10-07 09:56] LABS: Hematocrit 37.5 % (35.3-44.9); Hemoglobin 13.1 g/dL (11.5-15.4); Mean Corpuscular HGB Conc 34.9 g/dL (31.6-35.5); Mean Corpuscular Hemoglobin 30.8 pg (28.0-33.3); Mean Corpuscular Volume 88.2 fL (83.0-100.0); Mean Platelet Volume 9.5 fL (9.4-12.4); Platelet Count 168 K/mcL (140-400); Red Blood Count 4.25 M/mcL (3.82-4.97); Red Cell Distribution Width 12.9 % (11.5-14.5); White Blood Count 7.4 K/mcL (4.3-11.1)
[2019-10-07 10:16] LABS: BUN/Creatinine Ratio 24 (6-26); Blood Urea Nitrogen 20 mg/dL (8-23); Carbon Dioxide 25 mEq/L (23-29); Chloride 95 mEq/L (98-107); Glucose 107 mg/dL (70-105); Osmolality,Calculated 271 (280-300); Potassium 3.7 mEq/L (3.5-5.1); Sodium 129 mEq/L (136-145); eGFR For African Americans > 60 (> 60); eGFR For Non-African Americans > 60 (> 60)
[2019-10-07 10:40] LABS: INR 1.1; Prothrombin Time 12.2 Seconds (9.4-12.1)
[2019-10-07] MEDS: Gabapentin 300 MG CAPSULE PO SCH ×2 (10:43→22:14)
[2019-10-07] MEDS: Propranolol LA (24 HR) 80 MG CAP.SA.24H PO SCH ×2 (10:45→22:15)
[2019-10-07] MEDS: *HR* OxyCODONE Immed Rel 5 MG TABLET PO PRN (13:51)
[2019-10-07] MEDS ORDERED: Lidocaine -MPF 2% 2 ML VIAL ONE (16:57)
[2019-10-07] MEDS ORDERED: *HR* FentaNYL (PF) 100 MCG/2 ML VIAL ONE (16:57)
[2019-10-07] MEDS ORDERED: *HR* Propofol 200 MG/20 ML VIAL IVP ONE (16:57)
[2019-10-07] MEDS ORDERED: Famotidine 20 MG/2 ML VIAL ONE (17:02)
[2019-10-07] MEDS ORDERED: Acetaminophen IV 1,000 MG/100 ML INFUS..BTL ONE (17:02)
[2019-10-07] MEDS ORDERED: cloNIDine HCl 0.1 MG TABLET ONE (17:02)
[2019-10-07] MEDS ORDERED: *HR* PHENYLEPHRINE 1,000 MCG/10 ML SYRINGE IVP ONE ×2 (18:14→18:58)
[2019-10-07] MEDS ORDERED: Dexamethasone 4 MG/ML VIAL ONE (18:56)
[2019-10-07] MEDS ORDERED: Ondansetron 4 MG/2 ML VIAL ONE (18:56)
[2019-10-07] MEDS ORDERED: Ondansetron 4 MG/2 ML VIAL IVP ONE (19:30)
[2019-10-07] MEDS ORDERED: *HR* OxyCODONE Immed Rel 5 MG TABLET PO PRN ×2 (19:30→21:30)
[2019-10-07] MEDS ORDERED: *HR* HYDROmorphone (PF) 1 MG/ML SYRINGE IVP PRN (19:30)
[2019-10-07] MEDS ORDERED: *HR* Promethazine 25 MG/ML VIAL IVP PRN (19:30)
[2019-10-07] MEDS ORDERED: Naloxone 0.4 MG/ML INJ IVP PRN (20:19)
[2019-10-07] MEDS ORDERED: Vancomycin 750 MG in 0.9 % Sodium Chloride Mini Bag 100 ML IVPB SCH ×2 (22:00→22:15)
[2019-10-08] MEDS: Vancomycin 750 MG in 0.9 % Sodium Chloride Mini Bag 100 ML IVPB SCH (05:32)
[2019-10-08] MEDS: Gabapentin 300 MG CAPSULE PO SCH ×2 (09:59→19:57)
[2019-10-08] MEDS: Ascorbic Acid 500 MG TABLET PO SCH ×2 (09:59→18:40)
[2019-10-08] MEDS: Propranolol LA (24 HR) 80 MG CAP.SA.24H PO SCH ×2 (09:59→19:57)
[2019-10-08 11:49] LABS: Hematocrit 31.9 % (35.3-44.9); Mean Corpuscular HGB Conc 34.8 g/dL (31.6-35.5); Mean Corpuscular Hemoglobin 30.4 pg (28.0-33.3); Mean Corpuscular Volume 87.4 fL (83.0-100.0); Mean Platelet Volume 9.5 fL (9.4-12.4); Platelet Count 145 K/mcL (140-400); Red Blood Count 3.65 M/mcL (3.82-4.97); Red Cell Distribution Width 12.9 % (11.5-14.5); White Blood Count 8.6 K/mcL (4.3-11.1)
[2019-10-08 11:51] LABS: Hemoglobin 11.1 g/dL (11.5-15.4)
[2019-10-08 12:07] LABS: BUN/Creatinine Ratio 26 (6-26); Blood Urea Nitrogen 20 mg/dL (8-23); Calcium 8.8 mg/dL (8.6-10.3); Carbon Dioxide 26 mEq/L (23-29); Chloride 97 mEq/L (98-107); Glucose 131 mg/dL (70-105); Osmolality,Calculated 276 (280-300); Sodium 131 mEq/L (136-145); eGFR For African Americans > 60 (> 60); eGFR For Non-African Americans > 60 (> 60)
[2019-10-08] MEDS: *HR* Enoxaparin 30 MG/0.3 ML SYRINGE SQ SCH (18:40)
[2019-10-08] MEDS: Ibuprofen 400 MG TABLET PO PRN (19:57)
[2019-10-09 02:21] LABS: Hematocrit 30.7 % (35.3-44.9); Hemoglobin 10.6 g/dL (11.5-15.4); Mean Corpuscular HGB Conc 34.5 g/dL (31.6-35.5); Mean Corpuscular Hemoglobin 30.8 pg (28.0-33.3); Mean Corpuscular Volume 89.2 fL (83.0-100.0); Platelet Count 126 K/mcL (140-400); Red Blood Count 3.44 M/mcL (3.82-4.97); Red Cell Distribution Width 12.8 % (11.5-14.5); White Blood Count 7.1 K/mcL (4.3-11.1)
[2019-10-09 02:40] LABS: BUN/Creatinine Ratio 33 (6-26); Blood Urea Nitrogen 22 mg/dL (8-23); Calcium 8.6 mg/dL (8.6-10.3); Carbon Dioxide 25 mEq/L (23-29); Chloride 100 mEq/L (98-107); Glucose 106 mg/dL (70-105); Osmolality,Calculated 276 (280-300); Potassium 3.9 mEq/L (3.5-5.1); Sodium 131 mEq/L (136-145); eGFR For African Americans > 60 (> 60); eGFR For Non-African Americans > 60 (> 60)
[2019-10-09] MEDS: Vancomycin 750 MG in 0.9 % Sodium Chloride Mini Bag 100 ML IVPB SCH (05:10)
[2019-10-09] MEDS: *HR* Enoxaparin 30 MG/0.3 ML SYRINGE SQ SCH ×2 (05:10→17:13)
[2019-10-09] MEDS: Propranolol LA (24 HR) 80 MG CAP.SA.24H PO SCH ×2 (10:09→20:22)
[2019-10-09] MEDS: Gabapentin 300 MG CAPSULE PO SCH ×2 (10:09→20:22)
[2019-10-09] MEDS: Ascorbic Acid 500 MG TABLET PO SCH ×2 (10:09→17:13)
[2019-10-09] MEDS: Ibuprofen 400 MG TABLET PO PRN ×3 (10:10→23:16)
[2019-10-09] MEDS ORDERED: NON-FORMULARY MEDICATION 1 EACH EACH (Alendronate Sodium [Fosamax] 70 MG) PO SCH (16:32)
[2019-10-10] MEDS: *HR* Enoxaparin 30 MG/0.3 ML SYRINGE SQ SCH ×2 (05:45→17:05)
[2019-10-10] MEDS: Propranolol LA (24 HR) 80 MG CAP.SA.24H PO SCH ×2 (07:18→20:00)
[2019-10-10] MEDS: Gabapentin 300 MG CAPSULE PO SCH ×2 (07:18→20:00)
[2019-10-10] MEDS: Ascorbic Acid 500 MG TABLET PO SCH ×2 (07:19→17:05)
[2019-10-10] MEDS: Ibuprofen 400 MG TABLET PO PRN (14:02)
[2019-10-10] MEDS: *HR* HYDROcodone/Acet 5/325 mg TABLET PO PRN (17:05)
[2019-10-11] MEDS: *HR* Enoxaparin 30 MG/0.3 ML SYRINGE SQ SCH ×2 (05:47→16:42)
[2019-10-11] MEDS: Gabapentin 300 MG CAPSULE PO SCH ×2 (07:12→19:22)
[2019-10-11] MEDS: Propranolol LA (24 HR) 80 MG CAP.SA.24H PO SCH ×2 (07:12→19:21)
[2019-10-11] MEDS: Ascorbic Acid 500 MG TABLET PO SCH ×2 (07:12→16:42)
[2019-10-11] MEDS: Ibuprofen 400 MG TABLET PO PRN (19:22)
[2019-10-11] MEDS: *HR* HYDROcodone/Acet 5/325 mg TABLET PO PRN (21:06)
[2019-10-12] MEDS: *HR* Enoxaparin 30 MG/0.3 ML SYRINGE SQ SCH (05:29)
[2019-10-12] MEDS: *HR* HYDROcodone/Acet 5/325 mg TABLET PO PRN ×2 (10:07→16:15)
[2019-10-12] MEDS: Propranolol LA (24 HR) 80 MG CAP.SA.24H PO SCH (10:07)
[2019-10-12] MEDS: Gabapentin 300 MG CAPSULE PO SCH (10:07)
[2019-10-12] MEDS: Ascorbic Acid 500 MG TABLET PO SCH (10:07)
[2019-10-12 11:17] LABS: Hematocrit 32.7 % (35.3-44.9); Hemoglobin 11.1 g/dL (11.5-15.4); Immature Platelets 2.1 % (1.1-6.1); Mean Corpuscular HGB Conc 33.9 g/dL (31.6-35.5); Mean Corpuscular Hemoglobin 30.7 pg (28.0-33.3); Mean Corpuscular Volume 90.6 fL (83.0-100.0); Mean Platelet Volume 9.6 fL (9.4-12.4); Red Blood Count 3.61 M/mcL (3.82-4.97); Red Cell Distribution Width 12.8 % (11.5-14.5); White Blood Count 6.5 K/mcL (4.3-11.1)
[2019-10-12 11:29] LABS: BUN/Creatinine Ratio 26 (6-26); Blood Urea Nitrogen 16 mg/dL (8-23); Calcium 9.5 mg/dL (8.6-10.3); Carbon Dioxide 24 mEq/L (23-29); Chloride 100 mEq/L (98-107); Glucose 96 mg/dL (70-105); Osmolality,Calculated 281 (280-300); Sodium 135 mEq/L (136-145); eGFR For African Americans > 60 (> 60); eGFR For Non-African Americans > 60 (> 60)
[2019-10-12 15:34] VITALS: BP 147/77
== END 2019-10-12 16:45 | DRG 481 ==
LOC: EMEROOARM 11:24 → 3NENU 11:24 → SUATTDRO 15:16 → 3NENU 17:05
PROVIDERS: ADMIT Internal Medicine; ATTEND Internal Medicine

== ENCOUNTER 2020-04-15 15:03 | Observation (INO) ==
[2020-04-15] MEDS ORDERED: 0.9 % Sodium Chloride 1,000 ML IVC ONE (15:41)
[2020-04-15 16:27] LABS: Basophils % 0.7 %; Eosinophils # 0.1 K/mcL (0.0-0.6); Eosinophils % 2.4 %; Hematocrit 43.2 % (35.3-44.9); Hemoglobin 14.5 g/dL (11.5-15.4); Immature Granulocytes % 0.5 % (0-4); Lymphocytes # 1.1 K/mcL (0.6-4.6); Lymphocytes % 19.1 %; Mean Corpuscular HGB Conc 33.6 g/dL (31.6-35.5); Mean Corpuscular Hemoglobin 28.5 pg (28.0-33.3); Mean Platelet Volume 8.7 fL (9.4-12.4); Monocytes # 0.6 K/mcL (0.0-1.3); Monocytes % 10.9 %; Neutrophils # 3.9 K/mcL (1.6-8.9); Platelet Count 264 K/mcL (140-400); Red Blood Count 5.08 M/mcL (3.82-4.97); Red Cell Distribution Width 13.9 % (11.5-14.5); Segmented Neutrophils % 66.4 %; White Blood Count 5.8 K/mcL (4.3-11.1)
[2020-04-15 17:00] LABS: BUN/Creatinine Ratio 19 (6-26); Blood Urea Nitrogen 11 mg/dL (8-23); Calcium 9.9 mg/dL (8.6-10.3); Carbon Dioxide 22 mEq/L (23-29); Chloride 97 mEq/L (98-107); Glucose 106 mg/dL (70-105); Osmolality,Calculated 272 (280-300); Potassium 4.1 mEq/L (3.5-5.1); Sodium 131 mEq/L (136-145); Troponin I < 0.03 ng/mL (< 0.04); eGFR For African Americans > 60 (> 60); eGFR For Non-African Americans > 60 (> 60)
[2020-04-15] MEDS ORDERED: Isovue-370 500 ML BOTTLE IVP ONE ×2 (17:22→17:44)
[2020-04-15 17:31] LABS: Bilirubin,Urine Negative (Negative); Blood,Urine Negative (Negative); Clarity,Urine Clear (Clear); Color,Urine Colorless (Yellow); Glucose,Urine (UA) Normal (Normal); Ketones,Urine Negative (Negative); Leukocyte Esterase,Urine Negative (Negative); Nitrite,Urine Negative (Negative); PH,Urine 6.5 pH Units (5.0-8.0); Protein,Urine Negative (Neg-Trace); Specific Gravity,Urine 1.005 (1.010-1.025); Urobilinogen,Urine Normal (Normal)
[2020-04-15] MEDS ORDERED: *HR* Labetalol 20 MG/4 ML SYRINGE IVP ONE (17:46)
[2020-04-15 18:21] LABS: Triiodothyronine (T3) Free 3.61 pg/mL (2.50-3.90)
[2020-04-15] MEDS ORDERED: Naloxone 0.4 MG/ML INJ IVP PRN (19:48)
[2020-04-15] MEDS ORDERED: Ondansetron 4 MG/2 ML VIAL IVP PRN (19:48)
[2020-04-15] MEDS ORDERED: CefTRIAXone 1,000 MG VIAL ONE (22:30)
[2020-04-15] MEDS: 0.9 % Sodium Chloride 1,000 ML IVC SCH (22:51)
[2020-04-15] MEDS: *HR* Labetalol 20 MG/4 ML SYRINGE IVP PRN (22:51)
[2020-04-15] MEDS: cefTRIAXone 1,000 MG in 0.9 % Sodium Chloride Mini Bag 100 ML IVPB SCH (22:53)
[2020-04-15] MEDS: Azithromycin 500 MG in 0.9 % Sodium Chloride 250 ML IVPB SCH (23:37)
[2020-04-16] MEDS: Acetaminophen 325 MG TABLET PO PRN ×2 (01:10→20:02)
[2020-04-16] MEDS: *HR* Enoxaparin 40 MG/0.4 ML SYRINGE SQ SCH (05:48)
[2020-04-16 07:15] LABS: Basophils % 0.7 %; Eosinophils # 0.1 K/mcL (0.0-0.6); Eosinophils % 2.4 %; Hematocrit 39.6 % (35.3-44.9); Hemoglobin 13.3 g/dL (11.5-15.4); Immature Granulocytes % 0.4 % (0-4); Lymphocytes # 1.7 K/mcL (0.6-4.6); Lymphocytes % 30.8 %; Mean Corpuscular HGB Conc 33.6 g/dL (31.6-35.5); Mean Corpuscular Hemoglobin 29.4 pg (28.0-33.3); Mean Corpuscular Volume 87.4 fL (83.0-100.0); Mean Platelet Volume 8.8 fL (9.4-12.4); Monocytes # 0.7 K/mcL (0.0-1.3); Monocytes % 12.3 %; Neutrophils # 2.9 K/mcL (1.6-8.9); Platelet Count 214 K/mcL (140-400); Red Blood Count 4.53 M/mcL (3.82-4.97); Red Cell Distribution Width 13.9 % (11.5-14.5); Segmented Neutrophils % 53.4 %; White Blood Count 5.4 K/mcL (4.3-11.1)
[2020-04-16 07:20] LABS: INR 1.1; Prothrombin Time 12.6 Seconds (9.4-12.1)
[2020-04-16 07:42] LABS: Alanine Aminotransferase 13 Units/L (7-52); Albumin 3.7 g/dL (3.5-5.7); Albumin/Globulin Ratio 1.3 (1.1-2.2); Alkaline Phosphatase 71 Units/L (34-104); Aspartate Amino Transferase 16 Units/L (13-39); BUN/Creatinine Ratio 17 (6-26); Bilirubin,Total 0.5 mg/dL (0.3-1.0); Blood Urea Nitrogen 8 mg/dL (8-23); Calcium 9.1 mg/dL (8.6-10.3); Carbon Dioxide 21 mEq/L (23-29); Chloride 104 mEq/L (98-107); Chol/HDL Ratio 2.5 (0-4.9); Cholesterol 147 mg/dL (< 200); Globulin 2.8 g/dL (2.4-3.5); Glucose 86 mg/dL (70-105); HDL Cholesterol 59 mg/dL (40-59); LDL Cholesterol,Calculated 75 mg/dL (< 100); Osmolality,Calculated 276 (280-300); Potassium 3.4 mEq/L (3.5-5.1); Sodium 134 mEq/L (136-145); Total Protein 6.5 g/dL (6.4-8.9); Triglycerides 67 mg/dL (< 150); eGFR For African Americans > 60 (> 60); eGFR For Non-African Americans > 60 (> 60)
[2020-04-16] MEDS: 0.9 % Sodium Chloride 1,000 ML IVC SCH (10:46)
[2020-04-16] MEDS: Propranolol LA (24 HR) 80 MG CAP.SA.24H PO SCH ×2 (10:48→22:57)
[2020-04-16] MEDS: Gabapentin 300 MG CAPSULE PO SCH ×3 (10:50→20:18)
[2020-04-16] MEDS: Fluticasone Propionate Nasal 50 MCG/SPRAY BOTTLE NS SCH (10:52)
[2020-04-16] MEDS: *HR* Labetalol 20 MG/4 ML SYRINGE IVP PRN (16:08)
[2020-04-16] MEDS: lisinopriL 10 MG TABLET PO SCH (17:35)
[2020-04-16] MEDS: amLODIPine 5 MG TABLET PO SCH (17:35)
[2020-04-16] MEDS: cefTRIAXone 1,000 MG in 0.9 % Sodium Chloride Mini Bag 100 ML IVPB SCH (20:15)
[2020-04-16] MEDS ORDERED: Latanoprost 2.5 ML BOTTLE BOTH EYES SCH (21:00)
[2020-04-16] MEDS ORDERED: Loratadine 10 MG TABLET PO SCH (21:00)
[2020-04-16] MEDS ORDERED: Melatonin 3 MG TABLET PO SCH (21:00)
[2020-04-16] MEDS: Azithromycin 500 MG in 0.9 % Sodium Chloride 250 ML IVPB SCH (21:17)
[2020-04-17 02:39] LABS: BUN/Creatinine Ratio 30 (6-26); Blood Urea Nitrogen 17 mg/dL (8-23); Calcium 9.1 mg/dL (8.6-10.3); Carbon Dioxide 23 mEq/L (23-29); Chloride 105 mEq/L (98-107); Glucose 76 mg/dL (70-105); Osmolality,Calculated 274 (280-300); Potassium 4.6 mEq/L (3.5-5.1); Sodium 132 mEq/L (136-145); eGFR For African Americans > 60 (> 60); eGFR For Non-African Americans > 60 (> 60)
[2020-04-17] MEDS: *HR* Enoxaparin 40 MG/0.4 ML SYRINGE SQ SCH (05:19)
[2020-04-17] MEDS ORDERED: Cefdinir 300 MG CAPSULE PO SCH (10:15)
[2020-04-17] MEDS ORDERED: Azithromycin 250 MG TABLET PO SCH (10:15)
[2020-04-17] MEDS: Gabapentin 300 MG CAPSULE PO SCH (10:50)
[2020-04-17] MEDS: amLODIPine 5 MG TABLET PO SCH (10:50)
[2020-04-17] MEDS: Propranolol LA (24 HR) 80 MG CAP.SA.24H PO SCH (10:50)
[2020-04-17] MEDS: lisinopriL 10 MG TABLET PO SCH (10:50)
[2020-04-17] MEDS: Fluticasone Propionate Nasal 50 MCG/SPRAY BOTTLE NS SCH (10:50)
[2020-04-17 11:30] VITALS: BP 138/71
[2020-04-22] MEDS ORDERED: NON-FORMULARY MEDICATION 1 EACH EACH (Alendronate Sodium [Fosamax] 70 MG) PO SCH (08:15)
== END 2020-04-17 13:42 | disposition home health service (06) ==
LOC: 3BNU 15:03 → EMEROOARM 15:03 → 3BNU 20:29
PROVIDERS: ADMIT Internal Medicine; ATTEND Internal Medicine

== ENCOUNTER 2021-05-13 15:21 | Observation (INO) ==
[2021-05-13] MEDS ORDERED: 0.9 % Sodium Chloride 250 ML IV ONE (15:43)
[2021-05-13] MEDS ORDERED: Aspirin 81 MG TAB.CHEW PO STA (15:43)
[2021-05-13 16:16] LABS: Basophils % 0.4 %; Eosinophils # 0.1 K/mcL (0.0-0.6); Eosinophils % 0.8 %; Hematocrit 42.6 % (35.3-44.9); Hemoglobin 14.3 g/dL (11.5-15.4); Immature Granulocytes % 0.3 % (0-4); Lymphocytes % 13.7 %; Mean Corpuscular HGB Conc 33.6 g/dL (31.6-35.5); Mean Corpuscular Hemoglobin 29.7 pg (28.0-33.3); Mean Corpuscular Volume 88.6 fL (83.0-100.0); Mean Platelet Volume 9.3 fL (9.4-12.4); Monocytes # 0.9 K/mcL (0.0-1.3); Monocytes % 13.3 %; Neutrophils # 5.1 K/mcL (1.6-8.9); Platelet Count 251 K/mcL (140-400); Red Blood Count 4.81 M/mcL (3.82-4.97); Segmented Neutrophils % 71.5 %; White Blood Count 7.1 K/mcL (4.3-11.1)
[2021-05-13 16:41] LABS: Alanine Aminotransferase 15 Units/L (7-52); Albumin 4.6 g/dL (3.5-5.7); Albumin/Globulin Ratio 1.1 (1.1-2.2); Alkaline Phosphatase 97 Units/L (34-104); Aspartate Amino Transferase 17 Units/L (13-39); BUN/Creatinine Ratio 17 (6-26); Bilirubin,Direct 0.2 mg/dL (0.0-0.2); Bilirubin,Indirect 0.4 mg/dL (0.0-1.0); Bilirubin,Total 0.6 mg/dL (0.3-1.0); Blood Urea Nitrogen 13 mg/dL (8-23); Calcium 10.9 mg/dL (8.6-10.3); Carbon Dioxide 27 mEq/L (23-29); Chloride 95 mEq/L (98-107); Globulin 4.2 g/dL (2.4-3.5); Glucose 130 mg/dL (70-105); Osmolality,Calculated 276 (280-300); Potassium 3.6 mEq/L (3.5-5.1); Sodium 132 mEq/L (136-145); Total Protein 8.8 g/dL (6.4-8.9); Troponin I < 0.03 ng/mL (< 0.04); eGFR For African Americans > 60 (> 60); eGFR For Non-African Americans > 60 (> 60)
[2021-05-13 17:10] LABS: Amorphous Sediment,Urine Few per hpf (None-Few); Bilirubin,Urine Negative (Negative); Blood,Urine Negative (Negative); Clarity,Urine Turbid (Clear); Color,Urine Yellow (Yellow); Glucose,Urine (UA) Normal (Normal); Hyaline Casts,Urine Few per lpf (None Seen); Ketones,Urine Negative (Negative); Leukocyte Esterase,Urine Negative (Negative); Mucus,Urine Few per lpf (None-Few); Nitrite,Urine Negative (Negative); PH,Urine 6.5 pH Units (5.0-8.0); Protein,Urine 50 mg/dL (Neg-Trace); RBC,Urine 0-3 per hpf (0-3); Specific Gravity,Urine 1.018 (1.010-1.025); Squamous Epithelial Cell,Urine Few per hpf (None-Few); Urobilinogen,Urine Normal (Normal); WBC,Urine 0-3 per hpf (0-3)
[2021-05-13 17:14] LABS: Adenovirus Not Detected (Not Detect); Bordetella Pertussis Not Detected (Not Detect); Chlamydophila pneumoniae Not Detected (Not Detect); Coronavirus 229E Not Detected (Not Detect); Coronavirus HKU1 Not Detected (Not Detect); Coronavirus NL63 Not Detected (Not Detect); Coronavirus OC43 Not Detected (Not Detect); Human Metapneumovirus Not Detected (Not Detect); Human Rhinovirus/Enterovirus Not Detected (Not Detect); Influenza A Subtype 2009 H1 Not Detected (Not Detect); Influenza B Not Detected (Not Detect); Mycoplasma pneumoniae Not Detected (Not Detect); Parainfluenza Virus 1 Not Detected (Not Detect); Parainfluenza Virus 2 Not Detected (Not Detect); Parainfluenza Virus 3 Not Detected (Not Detect); Parainfluenza Virus 4 Not Detected (Not Detect); Respiratory Syncytial Virus Not Detected (Not Detect); SARS-CoV-2 Not Detected (Not Detect)
[2021-05-13] MEDS ORDERED: cefTRIAXone 1,000 MG in Water for inj. (sterile) 10 ML IVP ONE (18:16)
[2021-05-13] MEDS ORDERED: Azithromycin 250 MG TABLET PO ONE (18:17)
[2021-05-13] MEDS ORDERED: Acetaminophen 325 MG TABLET PO PRN (19:39)
[2021-05-13] MEDS ORDERED: Ondansetron 4 MG/2 ML VIAL IVP PRN (19:39)
[2021-05-13] MEDS ORDERED: Naloxone 0.4 MG/ML INJ IVP PRN (19:39)
[2021-05-13] MEDS ORDERED: 0.9 % Sodium Chloride 1,000 ML IVC SCH (19:45)
[2021-05-13] MEDS ORDERED: Ipratropium/Albuterol Neb 3 ML IH PRN (20:49)
[2021-05-14 03:02] LABS: Basophils % 0.3 %; Eosinophils # 0.2 K/mcL (0.0-0.6); Eosinophils % 2.5 %; Hemoglobin 12.9 g/dL (11.5-15.4); Immature Granulocytes % 0.3 % (0-4); Lymphocytes # 1.4 K/mcL (0.6-4.6); Lymphocytes % 22.6 %; Mean Corpuscular HGB Conc 34.9 g/dL (31.6-35.5); Mean Corpuscular Hemoglobin 30.6 pg (28.0-33.3); Mean Corpuscular Volume 87.9 fL (83.0-100.0); Mean Platelet Volume 9.2 fL (9.4-12.4); Monocytes # 1.1 K/mcL (0.0-1.3); Monocytes % 18.6 %; Neutrophils # 3.3 K/mcL (1.6-8.9); Platelet Count 221 K/mcL (140-400); Red Blood Count 4.21 M/mcL (3.82-4.97); Red Cell Distribution Width 11.9 % (11.5-14.5); Segmented Neutrophils % 55.7 %
[2021-05-14 03:27] LABS: BUN/Creatinine Ratio 23 (6-26); Blood Urea Nitrogen 13 mg/dL (8-23); Calcium 9.3 mg/dL (8.6-10.3); Carbon Dioxide 22 mEq/L (23-29); Chloride 104 mEq/L (98-107); Glucose 110 mg/dL (70-105); Magnesium 1.8 mg/dL (1.6-2.6); Osmolality,Calculated 279 (280-300); Potassium 3.9 mEq/L (3.5-5.1); Sodium 134 mEq/L (136-145); Troponin I < 0.03 ng/mL (< 0.04); eGFR For African Americans > 60 (> 60); eGFR For Non-African Americans > 60 (> 60)
[2021-05-14 04:17] LABS: Platelet Estimate Normal (Normal)
[2021-05-14 06:22] LABS: Triiodothyronine (T3) Free 2.62 pg/mL (2.50-3.90)
[2021-05-14] MEDS ORDERED: *HR* Enoxaparin 30 MG/0.3 ML SYRINGE SQ SCH (09:00)
[2021-05-14] MEDS ORDERED: Perflutren Lipid Microsphere 1.3 ML in 0.9 % Sodium Chloride 8.7 ML IVP PRN (10:47)
[2021-05-14 11:23] VITALS: BP 149/76; PULSE 72; TEMP 98.7; O2SAT 93
[2021-05-14] MEDS ORDERED: Azithromycin 500 MG in 0.9 % Sodium Chloride 250 ML IVPB SCH (19:00)
[2021-05-14] MEDS ORDERED: cefTRIAXone 1,000 MG in Water for inj. (sterile) 10 ML IVP SCH (19:00)
[2021-05-14] MEDS ORDERED: Gabapentin 300 MG CAPSULE PO SCH (21:00)
[2021-05-14] MEDS ORDERED: Loratadine 10 MG TABLET PO SCH (21:00)
[2021-05-14] MEDS ORDERED: Aspirin Enteric Coated 81 MG Tablet PO SCH (21:00)
[2021-05-14] MEDS ORDERED: Propranolol LA (24 HR) 80 MG CAP.SA.24H PO SCH (21:00)
[2021-05-14] MEDS ORDERED: Latanoprost 2.5 ML BOTTLE BOTH EYES SCH (21:00)
[2021-05-14] MEDS ORDERED: Melatonin 3 MG TABLET PO SCH (21:00)
[2021-05-15] MEDS ORDERED: lisinopriL 5 MG TABLET PO SCH (09:00)
== END 2021-05-14 14:31 | disposition home or self-care (01) ==
LOC: 3ANU 15:21 → EMEROOARM 15:21 → 3ANU 20:40
PROVIDERS: ADMIT Internal Medicine; ATTEND Internal Medicine